=== PATIENT | male | born 1970 | race African-American/Black ===

== ENCOUNTER 2016-10-08 02:17 | Emergency (ER) | payer OTHER ==
[~2016-10-08] VITALS: Ht 180.3 cm; Wt 99.8 kg
--- NOTE | 2016-10-08 02:20 | NUR ---
45 YO MALE BB SELF. PT IS ALERT X 3, C/O SI WITH PLAN; WANTS TO RUN INFRONT OF TRAFFIC. PT AMBULATED TO ER BED 17 WITH STEADY GAIT, SKIN WARM AND DRY, RR EVEN AND UNLABORED. AWAITING ORDERS FROM PROVIDER, WILL CONTINUE TO MONITOR
--- NOTE | 2016-10-08 02:30 | NUR ---
AIDE BROOKS MD AT BED SIDE FOR EVAL
[2016-10-08 03:16] LABS: BASOPHILS % (AUTO) 0.4 % (0.0-2.0); EOSINOPHILS # (AUTO) 0.1 /CMM (0.0-0.7); EOSINOPHILS % (AUTO) 1.9 % (0.0-6.0); HEMATOCRIT 44 % (39-51); HEMOGLOBIN 14.2 g/dL (13.5-17.5); LYMPHOCYTES # (AUTO) 2.4 /CMM (0.8-4.8); LYMPHOCYTES % (AUTO) 37.2 % (20.0-44.0); MEAN CORPUSCULAR HEMOGLOBIN 30 PG (26.0-33.0); MEAN CORPUSCULAR HGB CONC 33 g/dl (31.0-36.0); MEAN CORPUSCULAR VOLUME 92 fL (80-96); MONOCYTES # (AUTO) 0.5 /CMM (0.1-1.30); MONOCYTES % (AUTO) 7.2 % (2.0-12.0); NEUTROPHILS # (AUTO) 3.5 /CMM (1.8-8.9); NEUTROPHILS % (AUTO) 53.3 % (43.0-81.0); PLATELET COUNT (AUTO) 259 /CMM (150-450); RDW COEFFICIENT OF VARIATION 14.4 (11.5-15.0); RED BLOOD CELL COUNT(AUTO) 4.78 MIL/uL (4.5-6.0); WHITE BLOOD COUNT (AUTO) 6.6 K/uL (4.3-11.0)
[2016-10-08] MEDS ORDERED: IBUPROFEN 600 MG TABLET PO ONE ×2 (03:17→03:30)
--- NOTE | 2016-10-08 03:44 | NUR ---
MOVED PT TO ER BED 7, CLOSER TO NURSING STATION DUE TO ELOPMENT RISK
[2016-10-08 03:50] LABS: ALBUMIN 4.1 g/dL (3.4-5.0); BILIRUBIN,DIRECT 0.1 mg/dL (0.0-0.2); BILIRUBIN,TOTAL 0.5 mg/dL (0.2-1.0); CALCIUM, SERUM 8.9 mg/dL (8.5-10.1); POTASSIUM 3.6 mmol/L (3.5-5.1); SALICYLATE 3.5 mg/dL (2.8-20.0); TOTAL PROTEIN, SERUM 7.8 g/dL (6.4-8.2)
--- NOTE | 2016-10-08 05:20 | NUR ---
CHAYITO OLIVA CALLED, NO ANSWER
--- NOTE | 2016-10-08 05:56 | NUR ---
CALLED CHAYITO ROCHE, PER CHAYITO SHE IS NOT GREASE RENDERER, AND HER SHIFT ENDS AT 0400. NEXT CLINICIAN IS ON 0800 ART.
--- NOTE | 2016-10-08 07:15 | NUR ---
REPORT GIVEN TO NEGRITA ROCHE FOR CAMILO
--- NOTE | 2016-10-08 08:06 | NUR ---
SPOKE TO FRANK Rebolledo [facility] [phone], PATIENT'S INFORMATION FAXED TO [phone]. AWAITING FOR CALL WITH BED AVAILABILITY/TRANSFER INSTRUCTIONS.
--- NOTE | 2016-10-08 08:22 | NUR ---
PT ASLEEP, EASILY AROUSABLE. NAD NOTED. CALLED FOR BREAKFAST TRAY.
--- NOTE | 2016-10-08 09:37 | NUR ---
[facility] [employer] MACHINE OPERATOR ETA 45-60 MIN.
--- NOTE | 2016-10-08 10:52 | NUR ---
PT DISCHARGED WITH [facility] TO [facility] FOR VOLUNTARY PSYCH ADMISSION. NAD NOTED. VSS. DISCHARGE SIGNED AND VERBALIZES UNDERSTANDING. DISCHARGE AND LABS SENT WITH PT.
[2016-10-08 10:53] VITALS: BP 152/89
== END 2016-10-08 10:53 | disposition home or self-care (01) ==
LOC: ER 02:17
DX: F10.129 Alcohol abuse with intoxication, unspecified (principal); G89.29 Other chronic pain; R45.851 Suicidal ideations; F20.9 Schizophrenia, unspecified; R10.84 Generalized abdominal pain
CPT/HCPCS: 36415; 80048; 80076; 80329; 85025; 99284; A4606; G0480 ×2; G6039-TC; Z7610

== ENCOUNTER 2017-01-12 23:38 | Inpatient (IN) | payer OTHER ==
[~2017-01-12] VITALS: Ht 177.8 cm; Wt 99.8 kg
--- NOTE | 2017-01-12 23:45 | NUR ---
Pt IN ER BED 1. Pt C/O SEVERE ABD'L PAIN. Pt POSSIBLY HOMELESS BROUGHT IN BY EMT. Pt IS A/OX3, VERBAL, ABLE TO MAKE NEEDS KNOWN. NO S/S OF ACUTE DISTRESS OR SOB NOTED. VS: BP 156/74, HR 103, T 98F, R 18, O2 94% ON RA.
[2017-01-13] MEDS ORDERED: ONDANSETRON HCL/PF 4 MG/2 ML VIAL IVP ONE
[2017-01-13] MEDS ORDERED: IV NS 0.9% 1,000 ML BAG IV ONE
[2017-01-13] MEDS ORDERED: MORPHINE SULFATE INJ 2 MG/ML DISP.SYRIN IV ONE
--- NOTE | 2017-01-13 | NUR ---
Pt LEFT ROOM VIA [place] FOR [place] SCAN
--- NOTE | 2017-01-13 00:06 | NUR ---
CAME BACK FROM CT
[2017-01-13] MEDS ORDERED: ONDANSETRON HCL/PF 4 MG/2 ML VIAL ONE (00:11)
[2017-01-13] MEDS ORDERED: MORPHINE SULFATE INJ 4 MG/ML DISP.SYRIN ONE (00:11)
--- NOTE | 2017-01-13 00:20 | NUR ---
IV ACCESS ON R FOOT #18G
[2017-01-13 00:47] LABS: BASOPHILS % (AUTO) 0.4 % (0.0-2.0); EOSINOPHILS # (AUTO) 0.1 /CMM (0.0-0.7); HEMATOCRIT 40 % (39-51); HEMOGLOBIN 13.1 g/dL (13.5-17.5); LYMPHOCYTES % (AUTO) 41.6 % (20.0-44.0); MEAN CORPUSCULAR HEMOGLOBIN 30 PG (26.0-33.0); MEAN CORPUSCULAR HGB CONC 33 g/dl (31.0-36.0); MEAN CORPUSCULAR VOLUME 91 fL (80-96); MONOCYTES # (AUTO) 0.8 /CMM (0.1-1.30); MONOCYTES % (AUTO) 10.9 % (2.0-12.0); NEUTROPHILS # (AUTO) 3.3 /CMM (1.8-8.9); NEUTROPHILS % (AUTO) 46.1 % (43.0-81.0); PLATELET COUNT (AUTO) 221 /CMM (150-450); RED BLOOD CELL COUNT(AUTO) 4.37 MIL/uL (4.5-6.0); WHITE BLOOD COUNT (AUTO) 7.1 K/uL (4.3-11.0)
[2017-01-13 01:00] LABS: CALCIUM, SERUM 8.1 mg/dL (8.5-10.1); CREATININE 0.9 mg/dL (0.6-1.3); POTASSIUM 2.9 mmol/L (3.5-5.1)
[2017-01-13 01:05] LABS: INR 1.06 (0.87-1.13); PROTHROMBIN TIME 11.4 SECS (9.5-12.7)
[2017-01-13 01:06] LABS: ALBUMIN 3.9 g/dL (3.4-5.0); BILIRUBIN,DIRECT 0.1 mg/dL (0.0-0.2); BILIRUBIN,TOTAL 0.5 mg/dL (0.2-1.0); TOTAL PROTEIN, SERUM 7.2 g/dL (6.4-8.2)
[2017-01-13] MEDS ORDERED: POTASSIUM CHLORIDE 20 MEQ TAB.PRT.SR PO ONE (01:30)
[2017-01-13] MEDS ORDERED: Magnesium 1 GM/2 ML VIAL IV ONE (01:30)
[2017-01-13] MEDS ORDERED: Magnesium 1GM/D5W 100ML PREMIX 200 ML IV ONE (01:33)
[2017-01-13] MEDS ORDERED: HYDROMORPHONE 1 MG/1 ML DISP.SYRIN IV ONE (02:00)
[2017-01-13] MEDS ORDERED: POTASSIUM CL. PREMIX PERIPHER. 50 ML IV SCH (02:00)
[2017-01-13] MEDS ORDERED: POTASSIUM CL. PREMIX PERIPHER. 50 ML ONE (02:36)
[2017-01-13] MEDS ORDERED: HYDROMORPHONE 1 MG/1 ML DISP.SYRIN ONE (03:45)
--- NOTE | 2017-01-13 04:05 | NUR ---
RECEIVED REPORT FROM ER REGARDING NEW ADMISSION. AWAITING ARRIVAL IN UNIT
[2017-01-13 04:10] VITALS: BP 147/89
--- NOTE | 2017-01-13 04:10 | NUR ---
REPORT GIVEN TO RNCRIS
--- NOTE | 2017-01-13 04:10 | NUR ---
PATIENT ARRIVED IN UNIT VIA GURNEY, ALERT AND ORIENTED X4, CALM, NO SOB, NO RESPIRATORY DISTRESS, COMPLAINING OF RIGHT LOWER QUADRANT PAIN OF 8/10, DX PANCREATITIS. PATIENT IS EXPRESSING SUICIDAL IDEATION, PLAN IS TO THROW HIMSELF ON ONCOMING TRAFFIC IN [facility]. PATIENT IS HOMELESS, AND HOPELESS OF SITUATION. ADMITTED TO SMOKING 15 CIGARETTES DAILY AND DRINK ALCOHOL PREFERABLY GIN TO WHATEVER HE CAN AFFORD, APPROX 5 BOTTLES PER DAY OR PER WEEK. RIGHT FOOT #18 GAUGE, FLUSHED. HAS ER ORDER OF KCL 40 MEQ IV, GIVEN ONLY 1 BAG, CONTINUED 3 MORE BAGS OR KCL 30 MEQ. HAS SITTER AT THE BEDSIDE, ON SUICIDAL PRECAUTION. SKIN ASSESSMENT PERFORMED, DRY FEET, GENERAL SKIN CONDITION IS INTACT. ORIENTED TO ROOM AND USE OF CALL LIGHT. WILL CONTINUE TO MONITOR.
--- NOTE | 2017-01-13 04:14 | NUR ---
Pt LEFT ROOM FOR ADMISSION TO 308
[2017-01-13 04:30] VITALS: BP 147/89
[2017-01-13] MEDS ORDERED: MAG HYDROX/AL HYDROX/SIMETH 30 ML UDC PO PRN (04:30)
[2017-01-13] MEDS ORDERED: Z GUARD REMEDY 2 OZ OINT TP PRN (04:30)
[2017-01-13] MEDS ORDERED: ACETAMINOPHEN 325 MG TABLET PO PRN (04:30)
[2017-01-13] MEDS ORDERED: MAGNESIUM HYDROXIDE 30 ML UDC PO PRN (04:30)
[2017-01-13] MEDS ORDERED: ONDANSETRON HCL/PF 4 MG/2 ML VIAL IVP PRN (04:30)
[2017-01-13] MEDS ORDERED: HYDROCODONE/APAP 5/325MG 1 EACH TABLET PO PRN (04:30)
--- NOTE | 2017-01-13 04:35 | NUR ---
MARITZA COLLAZO ORDERED PSYCH CONSULT SECONDARY TO SUICIDAL IDEATION, NOTIFIED CHARGE NURSE.
[2017-01-13] MEDS: IV NS 0.9% 1,000 ML IV PRN ×3 (04:51→21:09)
[2017-01-13] MEDS: POTASSIUM CL. PREMIX PERIPHER. 50 ML IV SCH ×9 (05:03→22:09)
[2017-01-13] MEDS ORDERED: MORPHINE SULFATE INJ 2 MG/ML DISP.SYRIN ONE (05:14)
[2017-01-13] MEDS: MORPHINE SULFATE INJ 2 MG/ML DISP.SYRIN IV PRN ×2 (05:56→20:11)
--- NOTE | 2017-01-13 06:30 | NUR ---
PATIENT IN BED, ALERT AND ORIENTED X4, CALM, NO SOB, NO COMPLAIN OF PAIN AT THIS TIME, PROVIDED PAIN MEDICATION. COUNSELED ABOUT SMOKING CESSATION, SUGGESTED NICOTINE PATCH, PATIENT REFUSED, PER PATIENT "DOES NOT WORK." ENDORSED TO AM SHIFT FOR CONTINUITY OF CARE
[2017-01-13] MEDS ORDERED: PANTOPRAZOLE 40 MG TABLET.DR PO SCH (07:30)
[2017-01-13] MEDS ORDERED: PANTOPRAZOLE 40 MG VIAL IV SCH (07:30)
--- NOTE | 2017-01-13 07:35 | NUR ---
RN OPENING NOTES PATIENT IN BED ASLEEP, AROUSES EASILY. A/O X4. NO ACUTE DISTRESS, NO SOB NOTED. DENIES PAIN AT THIS TIME. IV SITE INTACT AND PATENT. SITTER ON BEDSIDE FOR SAFETY MEASURES. BED IN LOW POSITION, LOCKED, SIDERAILS UP X2. CALL LIGHTS WITHIN REACH. WILL CONTINUE TO MONITOR ACCORDINGLY.
[2017-01-13 08:00] VITALS: BP 150/94
[2017-01-13] MEDS: FAMOTIDINE/PF INJ 20 MG/2 ML VIAL IV SCH ×2 (09:40→20:32)
--- NOTE | 2017-01-13 12:30 | NUR ---
RN NOTES MIDLINE WAS INSERTED BY MIDLINE NURSE. PATENT AND INTACT.
[2017-01-13] MEDS ORDERED: QUETIAPINE FUMARATE 100 MG TABLET PO SCH (13:00)
[2017-01-13 16:00] VITALS: BP 154/87
[2017-01-13] MEDS: OXCARBAZEPINE 150 MG TABLET PO SCH ×2 (16:33→16:43)
--- NOTE | 2017-01-13 17:23 | NUR ---
RN NOTES DR CAPONE ORDERED EKG FOR BASELINE OF ANTIPSYCH MEDS, EKG RESULTED ABNORMAL. DR NARANJO AND DR CAPONE NOTIFIED, NO NEW ORDERS GIVEN. PATIENT IS ASYMPTOMATIC. WILL CONTINUE TO MONITOR PATIENT ACCORDINGLY.
--- NOTE | 2017-01-13 18:50 | NUR ---
RN NOTES 3 BAGS OF POTASSIUM 10 MEQ PULLED OUT AND ENDORSED TO ORDNANCE EQUIPMENT WORKER RN.
--- NOTE | 2017-01-13 19:00 | NUR ---
RN CLOSING NOTES PATIENT IN BED RESTING. NO ACUTE DISTRESS, NO SOB NOTED. DENIES ANY PAIN OR DISCOMFORT. ALL NEEDS ATTENDED AND PROVIDED. KEPT PATIENT SAFE AND COMFORTABLE. SITTER ON BEDSIDE FOR SAFETY. BED IN LOW POSITION, SIDERAILS UP X2. CALL LIGHT WITHIN REACH. ENDORSED TO SKID WORKER RN FOR CONTINUITY OF CARE.
--- NOTE | 2017-01-13 19:38 | NUR ---
RN NOTES MIDLINE BEING UNCLOGGED BY MELCHOR SO.
--- NOTE | 2017-01-13 19:38 | NUR ---
RN NOTES RECEIVED PATIENT IN BED, ALERT AND ORIENTED X4, ANXIOUS ABOUT EATING. NO SOB, NO RESPIRATORY DISTRESS, REPEATEDLY ASKING WHEN TO BE ABLE TO EAT. EDUCATED ON PANCREATITIS AND BEING NPO. WILL NEED TO REINFORCE TEACHING NEEDED. NO EPIGASTRIC PAIN AT THIS TIME, ON SUICIDE PRECAUTION, SITTER AT THE BEDSIDE. CALL LIGHT WITHIN REACH.
[2017-01-13 20:00] VITALS: BP 156/95
[2017-01-13 20:02] VITALS: BP 156/95
[2017-01-13] MEDS: QUETIAPINE FUMARATE 100 MG TABLET PO SCH (20:04)
--- NOTE | 2017-01-13 20:04 | NUR ---
RN NOTES SEROQUEL HELD, PATIENT IS STILL NPO. PER ENDORSEMENT RESUME PO MEDICATIONS ONCE ABLE TO TOLERATE SOLID FOOD.
--- NOTE | 2017-01-13 21:22 | NUR ---
RN NOTES RIGHT UPPER ARM MIDLINE IS GETTING CLOGGED AGAIN, UNABLE TO FLUSH.
--- NOTE | 2017-01-13 22:00 | NUR ---
REFUSED DVT PUMP, EXPLAINED TO PATIENT RISKS AND BENEFITS, STILL REFUSED
[2017-01-14 06:41] LABS: BASOPHILS % (AUTO) 0.3 % (0.0-2.0); EOSINOPHILS # (AUTO) 0.2 /CMM (0.0-0.7); EOSINOPHILS % (AUTO) 2.6 % (0.0-6.0); HEMATOCRIT 41 % (39-51); HEMOGLOBIN 13.6 g/dL (13.5-17.5); LYMPHOCYTES # (AUTO) 1.4 /CMM (0.8-4.8); LYMPHOCYTES % (AUTO) 18.1 % (20.0-44.0); MEAN CORPUSCULAR HEMOGLOBIN 31 PG (26.0-33.0); MEAN CORPUSCULAR HGB CONC 34 g/dl (31.0-36.0); MEAN CORPUSCULAR VOLUME 92 fL (80-96); MONOCYTES # (AUTO) 0.6 /CMM (0.1-1.30); MONOCYTES % (AUTO) 7.3 % (2.0-12.0); NEUTROPHILS # (AUTO) 5.7 /CMM (1.8-8.9); NEUTROPHILS % (AUTO) 71.7 % (43.0-81.0); PLATELET COUNT (AUTO) 178 /CMM (150-450); RDW COEFFICIENT OF VARIATION 14.2 (11.5-15.0); RED BLOOD CELL COUNT(AUTO) 4.43 MIL/uL (4.5-6.0); WHITE BLOOD COUNT (AUTO) 7.9 K/uL (4.3-11.0)
--- NOTE | 2017-01-14 06:41 | NUR ---
RN CLOSING NOTES PATIENT IN BED, ALERT AND AWAKE, ANXIOUS, ASKING WHEN TO EAT, NO SUICIDAL IDEATION AT THIS TIME, NO SOB, NO RESPIRATORY DISTRESS, REQUESTED MORPHINE X1 DURING SHIFT. NO VOMITING, LAKISHA MIDLINE IS STILL CLOGGED, UNABLE TO FLUSH. NO BEHAVIOR DISTURBANCE NOTED, NEEDS ATTENDED, CALL LIGHT WITHIN REACH, SITTER AT THE BEDSIDE.
[2017-01-14 07:19] LABS: ALBUMIN 3.5 g/dL (3.4-5.0); BILIRUBIN,TOTAL 0.7 mg/dL (0.2-1.0); CALCIUM, SERUM 8.8 mg/dL (8.5-10.1); CREATININE 0.8 mg/dL (0.6-1.3); MAGNESIUM 1.7 mg/dL (1.8-2.4); PHOSPHORUS 3.4 mg/dL (2.5-4.9); POTASSIUM 3.5 mmol/L (3.5-5.1)
[2017-01-14 07:22] LABS: THYROID STIMULATING HORMONE 0.089 uIU/mL (0.358-3.74)
[2017-01-14 08:00] VITALS: BP 150/90
--- NOTE | 2017-01-14 08:00 | NUR ---
m/s multimedia services coordinator: notes dr. grimm here and made aware re: midline clogged and pt is a hard stick, lipase is normalized, and pt has no abdominal pain or discomfort with verbal order to start pt on clear liquid diet and changed iv pepcid to po. pt still needs iv fluids. bhnau (supervisor packing) notified re: de clogging the midline.
--- NOTE | 2017-01-14 08:12 | NUR ---
m/s leather stitcher: md visit seen and examined by dr. grimm and updated plan of care. if pt tolerates clear liquid, pt may have solid food for lunch per md, pt verbalized understanding. clear liquid ordered. sitter at bedside. will continue to monitor.
[2017-01-14] MEDS: QUETIAPINE FUMARATE 100 MG TABLET PO SCH (08:37)
[2017-01-14] MEDS: OXCARBAZEPINE 150 MG TABLET PO SCH (08:37)
[2017-01-14] MEDS ORDERED: FAMOTIDINE (20 MG) 20 MG TABLET PO SCH (09:00)
--- NOTE | 2017-01-14 09:18 | NUR ---
m/s lab courier: notes pt tolerated clear liquid diet, no c/o n/v or abdominal discomfort at this time. will continue to monitor.
--- NOTE | 2017-01-14 10:25 | NUR ---
m/s manager commodities: notes pt tolerated clear liquid diet. dr. grimm notified and made aware with order to advance diet to regular. order read back and carried out and acknowledged. also made aware re: mag level 1.7 and md will take care of it as stated.
--- NOTE | 2017-01-14 11:07 | NUR ---
Social service consult requested by MARITZA Pennington for suicidal ideations and homelessness. Pt. is a 46 year old male who was admitted to [facility] for pancreatitis. Pt. is alert and oriented x 4. Pt. was cooperative with SW during the assessment. Pt. informed SW he is homeless and has been homeless on and off for approximately a year. Prior to being homeless he states, he has been living with "so called" friends. Pt. receives $983/ month in SSI disability. Pt. has no family or social supports. Pt. states he has a psychiatric diagnosis of Bipolar, Schizophrenia, Depression with a chemical imbalance. Pt. takes Seroquel daily. Pt. states he is suicidal but does not have a plan. Pt. wants voluntary hospitalization at [facility] once medically cleared. Pt. denies using drugs but drinks Gin and Vodka daily. Pt. smokes a pack of cigarettes per day. SW to refer pt. to [facility] for psychiatric care.
--- NOTE | 2017-01-14 11:12 | NUR ---
BRETT contacted [facility] and spoke to Blanca in intake regarding pt. wanting hospitalization. Blanca informed BRETT she is familiar with pt. and would like to speak to pt. prior to accepting him. BRETT called pt's MELCHOR Chen [phone] and informed him to have pt. call Blanca at [facility]. BRETT faxed clinicals to intake at . Addendum: 01/14/17 at 1115 by JOSH WEST BRETT received a call back from MELCHOR Chen informing BRETT that pt. called Blanca at [facility] and they will be holding a bed fro him. BRETT informed MELCHOR Chen that discharge summary needs to state " pt. is medically cleared" or else they will not accept pt.
[2017-01-14] MEDS ORDERED: MAGNESIUM OXIDE 400 MG TABLET PO ONE (11:30)
[2017-01-14] MEDS ORDERED: Magnesium 1GM/D5W 100ML PREMIX 100 ML IV SCH (11:30)
--- NOTE | 2017-01-14 11:40 | NUR ---
m/s apprentice architect: notes received order to d'c pt home with Discharge instructions <If patient tolerates solid food well and cleared by psychiatry may be, discharging p.m., Followup with primary care physician, Resume Home medications. pt has a bed at [facility]. spoke to dr. gannon (psych), pt is cleared for discharge. per gera (social work msw), pt needs a drug screen before discharge. dr. grimm notified and made aware and okay for pt to go to [facility] [place], pt is medically clear per md. informed md needs to state pt is medically clear in discharge summary.
--- NOTE | 2017-01-14 12:15 | NUR ---
m/s elevator adjuster: notes ua collected for drug screen via clean catch. called lab to draft roller picker specimen in ref, spoke to kandice.
--- NOTE | 2017-01-14 13:10 | NUR ---
m/s manager operations and procurement: notes urine still in the ref. f/u made to lab once more to pharmacy picking tech the specimen.
--- NOTE | 2017-01-14 14:15 | NUR ---
m/s recruitment manager: notes drug screen resulted. gera (social worker masters) made aware.
--- NOTE | 2017-01-14 14:29 | NUR ---
BRETT faxed drug screen results to Blanca in intake at [facility] . BRETT called Blanca and informed her that drug screen results and discharge summary were faxed. Blanca informed BRETT, she did receive them and to have a nurse to nurse report at x [phone]. BRETT contacted MELCHOR Chen and gave him the contact number to call for nurse to nurse report.
--- NOTE | 2017-01-14 14:30 | NUR ---
m/s drill rig operator: notes report given to demarcus (nurse) at [facility] [place] for continuity of care. demarcus wants pt to go by ambulance and not taxi. gera (foster care social worker) made aware and wants me to call case management. called vincent (case management) and informed me to ask the pt.
--- NOTE | 2017-01-14 14:45 | NUR ---
m/s watch crystal cutter: notes mid line removed with tip intact. pt request for ambulance and case management made aware and arranged for picking machine operator helper at 1600, pt made aware. pt request for sandwiches and cookies. kitchen notified.
--- NOTE | 2017-01-14 15:00 | NUR ---
m/s ux consultant: notes discharged instructions given to pt and verbalized understanding. pt has a cousin, but pt refused next of kin to be notified per request. awaiting for ambulance to pick him up. will continue to monitor.
[2017-01-14 16:00] VITALS: BP 149/80
--- NOTE | 2017-01-14 16:10 | NUR ---
m/s circus trainer: notes med response here and report given to one of the crew.
--- NOTE | 2017-01-14 16:35 | NUR ---
m/s payroll human resources assistant: discharged discharged to [facility] in stable condition with all belongings/valuables accompanied by 2 ambulance crew.
== END 2017-01-14 16:34 | DRG 282 ==
LOC: ER 23:39 → MED 01-13 03:46
PROVIDERS: ADMIT Nurse Practitioner Acute Care; ATTEND Nurse Practitioner Acute Care
PROC: 05H533Z Insertion of Infusion Device into Right Subclavian Vein, Percutaneous Approach (ICD-10-PCS; principal; 2017-01-13)
DX: K85.90 Acute pancreatitis without necrosis or infection, unspecified (principal); R45.851 Suicidal ideations; K76.0 Fatty (change of) liver, not elsewhere classified; E87.6 Hypokalemia; Z59.0 Homelessness; Z79.899 Other long term (current) drug therapy; R74.0 Nonspecific elevation of levels of transaminase and lactic acid dehydrogenase [LDH]; Z72.0 Tobacco use; F25.0 Schizoaffective disorder, bipolar type; F10.980 Alcohol use, unspecified with alcohol-induced anxiety disorder; Y90.9 Presence of alcohol in blood, level not specified
CPT/HCPCS: 36415; 36569; 72128-TC; 80048-TC; 80053-TC; 80061-TC; 80076-TC; 80305; 82962-TC; 83690-TC; 83735-TC; 84100-TC; 84443-TC; 84484-TC; 85025-TC; 85730-TC; 87081-TC; A4606; G0480; J1170; J2270; J2405; J3475; J3480; J3490; J7030; Z7610

== ENCOUNTER 2017-02-02 04:35 | Emergency (ER) | payer OTHER ==
[~2017-02-02] VITALS: Ht 185.4 cm; Wt 114.8 kg
[2017-02-02] MEDS ORDERED: MORPHINE SULFATE INJ 4 MG/ML DISP.SYRIN ONE (04:43)
[2017-02-02] MEDS ORDERED: ONDANSETRON HCL/PF 4 MG/2 ML VIAL ONE (04:43)
--- NOTE | 2017-02-02 04:46 | NUR ---
PT BIBRA FROM HOME FOR DIFUSE ABD PAIN, SHARP X 1 WK. PT ADMITS TO ETOH. PT AOX4 RR EVEN AND UNLABORED. NO SOB NOTED. NAD NOTED. NO NVD AT THIS TIME. PT GOWNED AND PLACED ON MONITOR WAITING FOR MD DUMAS.
[2017-02-02] MEDS ORDERED: ONDANSETRON HCL/PF 4 MG/2 ML VIAL IVP ONE (05:00)
[2017-02-02] MEDS ORDERED: MORPHINE SULFATE INJ 2 MG/ML DISP.SYRIN IV ONE (05:00)
[2017-02-02] MEDS ORDERED: IV NS 0.9% 1,000 ML BAG IV ONE (05:00)
--- NOTE | 2017-02-02 05:00 | NUR ---
PER DR. SAKINA STARR TO START IV ON FOOT.
--- NOTE | 2017-02-02 05:11 | NUR ---
LAB AT BEDSIDE FOR BLOOD DRAW.
--- NOTE | 2017-02-02 05:15 | NUR ---
PT STATES " I WANT TO KILL MYSELF OR KILL OTHERS, BUT I DONT FEEL LIKE RIGHT NOW" PT DENIES ANY PLANS AT THIS TIME. DR. MILLER MADE AWARE
--- NOTE | 2017-02-02 05:40 | NUR ---
PT TO CT.
[2017-02-02 05:49] LABS: BASOPHILS # (AUTO) 0.1 /CMM (0.0-0.2); BASOPHILS % (AUTO) 0.8 % (0.0-2.0); EOSINOPHILS % (AUTO) 0.6 % (0.0-6.0); HEMATOCRIT 43 % (39-51); HEMOGLOBIN 14.2 g/dL (13.5-17.5); LYMPHOCYTES # (AUTO) 2.2 /CMM (0.8-4.8); MEAN CORPUSCULAR HEMOGLOBIN 30 PG (26.0-33.0); MEAN CORPUSCULAR HGB CONC 33 g/dl (31.0-36.0); MEAN CORPUSCULAR VOLUME 91 fL (80-96); MONOCYTES # (AUTO) 0.5 /CMM (0.1-1.30); MONOCYTES % (AUTO) 7.4 % (2.0-12.0); NEUTROPHILS # (AUTO) 3.7 /CMM (1.8-8.9); NEUTROPHILS % (AUTO) 57.2 % (43.0-81.0); PLATELET COUNT (AUTO) 246 /CMM (150-450); RDW COEFFICIENT OF VARIATION 14.6 (11.5-15.0); RED BLOOD CELL COUNT(AUTO) 4.72 MIL/uL (4.5-6.0); WHITE BLOOD COUNT (AUTO) 6.6 K/uL (4.3-11.0)
[2017-02-02 05:52] LABS: CALCIUM, SERUM 8.6 mg/dL (8.5-10.1); CARBON DIOXIDE 25 mmol/L (21-32); CHLORIDE 108 mmol/L (98-107); CREATININE 0.8 mg/dL (0.6-1.3); GLUCOSE 106 mg/dL (74-106); POTASSIUM 3.7 mmol/L (3.5-5.1); SODIUM SERUM 145 mmol/L (136-145); UREA NITROGEN, BLOOD 10 mg/dL (7-18)
[2017-02-02 05:58] LABS: ALANINE AMINOTRANSFERASE 66 U/L (12-78); ALBUMIN 4.1 g/dL (3.4-5.0); ALKALINE PHOSPHATASE 105 U/L (46-116); ASPARTATE AMINOTRANSFERASE 31 U/L (15-37); BILIRUBIN,DIRECT 0.1 mg/dL (0.0-0.2); BILIRUBIN,TOTAL 0.6 mg/dL (0.2-1.0); LIPASE 138 U/L (73-393); TOTAL PROTEIN, SERUM 7.9 g/dL (6.4-8.2)
[2017-02-02 06:00] LABS: SALICYLATE 3.3 mg/dL (2.8-20.0)
--- NOTE | 2017-02-02 06:18 | NUR ---
URINE COLLECTED. CALLED LAB FOR LAG SCREWER.
[2017-02-02 06:28] LABS: APPEARANCE,URINE CLEAR (CLEAR); BILIRUBIN,URINE NEGATIVE (NEGATIVE); BLOOD, URINE NEGATIVE Ery/uL (NEGATIVE); COLOR,URINE YELLOW (YELLOW); KETONES,URINE NEGATIVE (NEGATIVE); LEUKOCYTE ESTERASE ,URINE NEGATIVE (NEGATIVE); NITRITE, URINE NEGATIVE (NEGATIVE); PH,URINE 6.5 (5.0-8.0); PROTEIN,URINE NEGATIVE (NEGATIVE); UGLUCOSE NEGATIVE (NEGATIVE); UROBILINOGEN,URINE 0.2 EU/dL (0.2)
[2017-02-02 06:34] LABS: INR 1.04 (0.87-1.13); PROTHROMBIN TIME 11.1 SECS (9.5-12.7)
--- NOTE | 2017-02-02 06:54 | NUR ---
DR. CROW SPEAKING TO PT REGARDING POC
--- NOTE | 2017-02-02 07:20 | NUR ---
PER DR. CROW, PT CLEARED FOR PSYCH CONSULT
--- NOTE | 2017-02-02 07:27 | NUR ---
REPORT GIVEN TO MELCHOR CORADO FOR CAMILO.
--- NOTE | 2017-02-02 08:00 | NUR ---
DR. CROW INFORMED OF LACTIC ACID 2.1, NO NEW ORDERS AT THIS TIME.
--- NOTE | 2017-02-02 08:26 | NUR ---
PAGED RON SPARKS RN FOR PSYCH EVAL ETA - 1 HR
--- NOTE | 2017-02-02 09:25 | NUR ---
Patient cleared per psych eval.
[2017-02-02 09:29] VITALS: BP 155/72
--- NOTE | 2017-02-02 09:40 | NUR ---
Patient discharged to home in stable condition. IV removed. ID band removed. Written and verbal after care instructions given. Patient verbalizes understanding of instruction.
== END 2017-02-02 09:40 | disposition home or self-care (01) ==
LOC: ER 04:36
DX: R10.84 Generalized abdominal pain (principal); R45.851 Suicidal ideations; Z59.0 Homelessness
CPT/HCPCS: 36415; 74176; 80048; 80076; 80305; 80329; 81001; 83605 ×2; 83690; 85025; 85730; 87040 ×2; 96361; 96374; 96375; 99285; A4606; G0480 ×2; J2270; J2405; J7030; Z7610; 71250-TC; 81000-TC

== ENCOUNTER 2017-02-02 23:17 | Emergency (ER) | payer OTHER ==
[~2017-02-02] VITALS: Ht 185.4 cm; Wt 114.8 kg
--- NOTE | 2017-02-03 | NUR ---
46 YO MALE BB [id number] FROM [facility]. NON-SPECIFIC, DIFUSE ABD PAIN. PT AMBULATED TO ER BED, SKIN WARM AND DRY, RR EVEN AND UNLABORED. PT ASSISTED TO ER BED, SKIN WARM AND DRY, RR EVEN AND UNLABORED. AWAITING ORDERS FROM PROVIDER
[2017-02-03 00:25] LABS: BASOPHILS # (AUTO) 0.1 /CMM (0.0-0.2); BASOPHILS % (AUTO) 1.3 % (0.0-2.0); EOSINOPHILS # (AUTO) 0.1 /CMM (0.0-0.7); EOSINOPHILS % (AUTO) 1.7 % (0.0-6.0); HEMATOCRIT 44 % (39-51); HEMOGLOBIN 14.4 g/dL (13.5-17.5); LYMPHOCYTES # (AUTO) 3.3 /CMM (0.8-4.8); LYMPHOCYTES % (AUTO) 45.6 % (20.0-44.0); MEAN CORPUSCULAR HEMOGLOBIN 30 PG (26.0-33.0); MEAN CORPUSCULAR HGB CONC 33 g/dl (31.0-36.0); MEAN CORPUSCULAR VOLUME 91 fL (80-96); MONOCYTES # (AUTO) 0.2 /CMM (0.1-1.30); NEUTROPHILS # (AUTO) 3.5 /CMM (1.8-8.9); NEUTROPHILS % (AUTO) 48.4 % (43.0-81.0); PLATELET COUNT (AUTO) 262 /CMM (150-450); RDW COEFFICIENT OF VARIATION 15.2 (11.5-15.0); RED BLOOD CELL COUNT(AUTO) 4.83 MIL/uL (4.5-6.0); WHITE BLOOD COUNT (AUTO) 7.1 K/uL (4.3-11.0)
--- NOTE | 2017-02-03 00:25 | NUR ---
AT BED SIDE FOR EVAL
[2017-02-03 00:47] LABS: CALCIUM, SERUM 8.6 mg/dL (8.5-10.1); POTASSIUM 3.5 mmol/L (3.5-5.1)
[2017-02-03 00:51] LABS: ALBUMIN 4.2 g/dL (3.4-5.0); BILIRUBIN,DIRECT 0.1 mg/dL (0.0-0.2); BILIRUBIN,TOTAL 0.4 mg/dL (0.2-1.0); TOTAL PROTEIN, SERUM 8.1 g/dL (6.4-8.2)
[2017-02-03 01:02] LABS: ALCOHOL, BLOOD 248 mg/dL (0-0)
[2017-02-03 01:04] LABS: ACETAMINOPHEN 0 ug/ml (10-30)
--- NOTE | 2017-02-03 02:05 | NUR ---
PATIENT RESTING IN ER BED, NAD NOTED, SKIN WARM AND DRY, WILL CONTINUE TO MONITOR
--- NOTE | 2017-02-03 04:02 | NUR ---
PATIENT RESTING IN ER BED, NAD NOTED, SKIN WARM AND DRY, WILL CONTINUE TO MONITOR
[2017-02-03 06:21] VITALS: BP 147/75
--- NOTE | 2017-02-03 06:21 | NUR ---
Patient discharged to home in stable condition. Written and verbal after care instructions given. Patient verbalizes understanding of instruction. PT ambulatory with a steady gait
== END 2017-02-03 06:21 | disposition home or self-care (01) ==
LOC: ER 23:19
DX: F10.129 Alcohol abuse with intoxication, unspecified (principal); R10.13 Epigastric pain
CPT/HCPCS: 36415; 80048; 80076; 83690; 85025; 99284; A4606; G0480 ×2; Z7610

== ENCOUNTER 2017-02-04 21:01 | Emergency (ER) | payer OTHER ==
[~2017-02-04] VITALS: Ht 177.8 cm; Wt 90.7 kg
--- NOTE | 2017-02-04 21:14 | NUR ---
PT FRANKLYN ER BED 15. HERE FOR MEDICAL AND PSYCH EVAL. PT IS C/O DIFFUSE ABDOMINAL PAIN. ADMITS TO BEEN DRINKS ALCOHOL. ALSO C/O SI. NO SPECIFIC PLAN. REQUESTING MORPHIN STATING "IT MAKES ME FEEL GOOD." PLACED ON MONITOR. AWAITING MD DUMAS.
--- NOTE | 2017-02-04 21:20 | NUR ---
KAROLINA ARROYO AT BEDSIDE FOR EVAL.
[2017-02-04] MEDS ORDERED: KETOROLAC TROMETHAMINE INJ 30 MG/ML VIAL ONE (21:30)
--- NOTE | 2017-02-04 21:30 | NUR ---
APPARATUS LINEMAN AT BEDSIDE FOR BLOOD DRAW.
--- NOTE | 2017-02-04 21:30 | NUR ---
Milton castaneda in [facility] - 02/04/17 at 2311 by MARVA CERTIFIED HYPERBARIC TECHNICIAN AT BEDSIDE FOR SYBILAL.
[2017-02-04 21:37] LABS: BASOPHILS # (AUTO) 0.1 /CMM (0.0-0.2); BASOPHILS % (AUTO) 0.9 % (0.0-2.0); EOSINOPHILS # (AUTO) 0.1 /CMM (0.0-0.7); EOSINOPHILS % (AUTO) 1.4 % (0.0-6.0); HEMATOCRIT 43 % (39-51); HEMOGLOBIN 13.9 g/dL (13.5-17.5); LYMPHOCYTES # (AUTO) 2.9 /CMM (0.8-4.8); LYMPHOCYTES % (AUTO) 41.3 % (20.0-44.0); MEAN CORPUSCULAR HEMOGLOBIN 30 PG (26.0-33.0); MEAN CORPUSCULAR HGB CONC 32 g/dl (31.0-36.0); MEAN CORPUSCULAR VOLUME 93 fL (80-96); MONOCYTES # (AUTO) 0.4 /CMM (0.1-1.30); MONOCYTES % (AUTO) 5.4 % (2.0-12.0); NEUTROPHILS # (AUTO) 3.4 /CMM (1.8-8.9); PLATELET COUNT (AUTO) 290 /CMM (150-450); RDW COEFFICIENT OF VARIATION 14.1 (11.5-15.0); RED BLOOD CELL COUNT(AUTO) 4.65 MIL/uL (4.5-6.0); WHITE BLOOD COUNT (AUTO) 6.9 K/uL (4.3-11.0)
[2017-02-04] MEDS: KETOROLAC TROMETHAMINE INJ 30 MG/ML VIAL IV ONE (22:19)
[2017-02-04 22:44] LABS: CALCIUM, SERUM 8.6 mg/dL (8.5-10.1); POTASSIUM 3.4 mmol/L (3.5-5.1)
[2017-02-04 22:45] LABS: APPEARANCE,URINE CLEAR (CLEAR); COLOR,URINE YELLOW (YELLOW); PROTEIN,URINE TRACE mg/dl (NEGATIVE)
[2017-02-04 22:46] LABS: UGLUCOSE NEGATIVE (NEGATIVE)
[2017-02-04 22:47] LABS: BILIRUBIN,URINE NEGATIVE (NEGATIVE); BLOOD, URINE TRACE Ery/uL (NEGATIVE); KETONES,URINE TRACE (NEGATIVE); LEUKOCYTE ESTERASE ,URINE NEGATIVE (NEGATIVE); NITRITE, URINE NEGATIVE (NEGATIVE); UROBILINOGEN,URINE 0.2 EU/dL (0.2)
[2017-02-04 22:49] LABS: BACTERIA,URINE None seen /HPF (None Seen); MUCUS,URINE Few /LPF (None Seen); RBC,URINE 0-2 /HPF (0-2); SQUAMOUS EPITHELIAL CELL,UR Rare /HPF (None Seen); WBC,URINE 0-2 /HPF (0-3)
[2017-02-04 22:51] LABS: BILIRUBIN,DIRECT 0.1 mg/dL (0.0-0.2); BILIRUBIN,TOTAL 0.4 mg/dL (0.2-1.0)
[2017-02-04 22:52] LABS: ALBUMIN 4.4 g/dL (3.4-5.0); SALICYLATE 3.6 mg/dL (2.8-20.0); TOTAL PROTEIN, SERUM 8.3 g/dL (6.4-8.2)
--- NOTE | 2017-02-05 00:05 | NUR ---
PT IS SLEEPING. EASILY AROUSABLE. ON MONITOR W/ STABLE VITALS. WILL CONTINUE TO MONITOR.
--- NOTE | 2017-02-05 02:13 | NUR ---
PT ON MONITOR SLEEPING IN NO APPARENT DISTRESS, MD MADE AWARE WILL CONTINUE TO MONITOR.
--- NOTE | 2017-02-05 03:57 | NUR ---
PT IS SLEEPING IN NO APPARENT DISTRESS, MD MADE AWARE WILL CONTINUE TO MONITOR.
--- NOTE | 2017-02-05 05:03 | NUR ---
PT A/OX4 BREATHING EFFORTLESSLY ON ROOM AIR, PT STATES HE IS FEELING BETTER AFTER SLEEPING, PT DENIES SI OR HI AT THIS TIME, PT WALKED OUT OF THE ER WITH A STEADY GAIT
[2017-02-05 05:05] VITALS: BP 126/76
--- NOTE | 2017-02-05 05:05 | NUR ---
Patient given written and verbal discharge instructions. Patient verbalizes understanding of instructions. Patient is ambulatory with steady gait. Refuses offer of jail placement. Patient given list of available shelters in surrounding area.
== END 2017-02-05 05:06 | disposition home or self-care (01) ==
LOC: ER 21:02
DX: F10.129 Alcohol abuse with intoxication, unspecified (principal)
CPT/HCPCS: 36415; 80048-TC; 80076-TC; 80305; 81000-TC; 85025-TC; A4606; G0480; J1885; Z7610

== ENCOUNTER 2017-02-05 23:24 | Emergency (ER) | payer OTHER ==
[~2017-02-05] VITALS: Ht 175.3 cm; Wt 90.7 kg
[2017-02-05 23:25] VITALS: BP 165/88
--- NOTE | 2017-02-05 23:25 | NUR ---
BIB BLS HERE FOR "CHRONIC ABD PAIN". STATES "I WANT MORPHINE, SOMETHNG TO EAT AND SOMEWHERE TO SLEEP". PT TRIAGED AND PLACED IN WR. NO BEDS AVAILABLE AT THIS TIME. PT INFORMED. NO S/S OF DISTRESS NOTED. RESP EVEN AND UNLABORED. FSBS 115G/DL.
--- NOTE | 2017-02-06 01:25 | NUR ---
ASKED FOR BLANKET AND GIVEN. LYING IN CHAIR IN WR. APPEARS TO BE SLEEPING. STATES "I JUST WANNA SLEEP".
--- NOTE | 2017-02-06 02:05 | NUR ---
REMAINS RESTIGN WITH EYES CLOSED. NAD NOTED.
--- NOTE | 2017-02-06 03:17 | NUR ---
STILL RESTING WITH EYES CLOSED IN WR WITH BLANKET COVER. NO S/S OF DISTRESS NOTED. STILL STATES "AM TIRED AND JUST WANNA SLEEP". RENOTIFIED.
--- NOTE | 2017-02-06 04:00 | NUR ---
INFORMED BY SECURITY "PT LEFT"
== END 2017-02-06 04:46 | disposition left against medical advice (07) ==
LOC: ER 23:25
DX: Z53.21 Procedure and treatment not carried out due to patient leaving prior to being seen by health care provider (principal)
CPT/HCPCS: A4606; Z7610

== ENCOUNTER 2017-02-17 02:47 | Emergency (ER) | payer OTHER ==
[~2017-02-17] VITALS: Ht 177.8 cm; Wt 90.7 kg
[2017-02-17 06:24] VITALS: BP 125/72
== END 2017-02-17 06:59 | disposition home or self-care (01) ==
LOC: ER 02:52
DX: F10.129 Alcohol abuse with intoxication, unspecified (principal); K85.90 Acute pancreatitis without necrosis or infection, unspecified
CPT/HCPCS: 99283; A4606; Z7610

== ENCOUNTER 2017-03-21 22:07 | Emergency (ER) | payer OTHER ==
[~2017-03-21] VITALS: Ht 177.8 cm; Wt 99.8 kg
[2017-03-21 22:07] VITALS: BP 159/100
[2017-03-22] MEDS ORDERED: TRAMADOL HCL 50 MG TABLET ONE (02:47)
--- NOTE | 2017-03-22 02:51 | NUR ---
Patient given written and verbal discharge instructions. Patient verbalizes understanding of instructions. Patient is ambulatory with steady gait. Refuses offer of [place] [facility] placement. Patient given list of available shelters in surrounding area.
[2017-03-22] MEDS ORDERED: TRAMADOL HCL 50 MG TABLET PO ONE (03:00)
== END 2017-03-22 02:51 | disposition home or self-care (01) ==
LOC: ER 22:08
DX: R10.9 Unspecified abdominal pain (principal); R19.7 Diarrhea, unspecified; G89.29 Other chronic pain; K85.90 Acute pancreatitis without necrosis or infection, unspecified; K92.0 Hematemesis; F17.200 Nicotine dependence, unspecified, uncomplicated
CPT/HCPCS: 99283; A4606; Z7610

== ENCOUNTER 2017-07-05 09:32 | Emergency (ER) | payer OTHER ==
[~2017-07-05] VITALS: Ht 182.9 cm; Wt 90.7 kg
--- NOTE | 2017-07-05 09:40 | NUR ---
[id number] FROM [facility]: ETOH WITHDRAWAL, LAST DRINK YESTERDAY. ALSO C/O ABD PAIN. PATIENT IS A/OX 4. BREATHING EVEN AND UNLAOBRED. NO SOB, NAD, VSS. SAFTEY AND COMFORT MEASURES IN PLACE, AT BEDSIDE FOR EVAL.
[2017-07-05] MEDS ORDERED: PANTOPRAZOLE 40 MG VIAL ONE (09:48)
[2017-07-05] MEDS ORDERED: MORPHINE SULFATE INJ 4 MG/ML DISP.SYRIN ONE (09:48)
[2017-07-05] MEDS ORDERED: ONDANSETRON HCL/PF 4 MG/2 ML VIAL ONE (09:48)
[2017-07-05] MEDS ORDERED: MORPHINE SULFATE INJ 2 MG/ML DISP.SYRIN IV ONE (10:00)
[2017-07-05] MEDS ORDERED: IV NS 0.9% 1,000 ML BAG IV ONE (10:00)
[2017-07-05] MEDS ORDERED: ONDANSETRON HCL/PF 4 MG/2 ML VIAL IVP ONE (10:00)
[2017-07-05] MEDS ORDERED: PANTOPRAZOLE 40 MG VIAL IV ONE (10:00)
[2017-07-05 10:16] LABS: BASOPHILS # (AUTO) 0.3 /CMM (0.0-0.2); BASOPHILS % (AUTO) 3.9 % (0.0-2.0); EOSINOPHILS % (AUTO) 0.2 % (0.0-6.0); HEMATOCRIT 40 % (39-51); HEMOGLOBIN 13.5 g/dL (13.5-17.5); LYMPHOCYTES # (AUTO) 1.4 /CMM (0.8-4.8); LYMPHOCYTES % (AUTO) 19.5 % (20.0-44.0); MEAN CORPUSCULAR HEMOGLOBIN 31 PG (26.0-33.0); MEAN CORPUSCULAR HGB CONC 33 g/dl (31.0-36.0); MEAN CORPUSCULAR VOLUME 91 fL (80-96); MONOCYTES # (AUTO) 0.6 /CMM (0.1-1.30); MONOCYTES % (AUTO) 7.8 % (2.0-12.0); NEUTROPHILS % (AUTO) 68.6 % (43.0-81.0); PLATELET COUNT (AUTO) 285 /CMM (150-450); RED BLOOD CELL COUNT(AUTO) 4.41 MIL/uL (4.5-6.0); WHITE BLOOD COUNT (AUTO) 7.3 K/uL (4.3-11.0)
[2017-07-05 10:24] LABS: CALCIUM, SERUM 9.2 mg/dL (8.5-10.1); CARBON DIOXIDE 23 mmol/L (21-32); CHLORIDE 103 mmol/L (98-107); GLUCOSE 82 mg/dL (74-106); POTASSIUM 3.9 mmol/L (3.5-5.1); SODIUM SERUM 141 mmol/L (136-145); UREA NITROGEN, BLOOD 13 mg/dL (7-18)
[2017-07-05 10:30] LABS: ALANINE AMINOTRANSFERASE 42 U/L (12-78); ALBUMIN 4.1 g/dL (3.4-5.0); ALCOHOL, BLOOD 40 mg/dL (0-0); ALKALINE PHOSPHATASE 116 U/L (46-116); ASPARTATE AMINOTRANSFERASE 42 U/L (15-37); BILIRUBIN,DIRECT 0.1 mg/dL (0.0-0.2); BILIRUBIN,TOTAL 0.9 mg/dL (0.2-1.0); LIPASE 90 U/L (73-393); TOTAL PROTEIN, SERUM 7.6 g/dL (6.4-8.2)
[2017-07-05 10:32] LABS: ACETAMINOPHEN < 2 ug/ml (10-30); SALICYLATE 1.6 mg/dL (2.8-20.0)
[2017-07-05] MEDS ORDERED: LORAZEPAM INJ 2 MG/ML VIAL IV STA (11:46)
[2017-07-05] MEDS ORDERED: LORAZEPAM INJ 2 MG/ML VIAL ONE (11:59)
--- NOTE | 2017-07-05 12:45 | NUR ---
PT RECEIVED LUNCH TRAY
--- NOTE | 2017-07-05 12:50 | NUR ---
SPOKE WITH OLIMPIA FROM [facility], SAID THAT PATIENT CAN GO BACK TO THEM IF MEDICALLY CLEARED
[2017-07-05] MEDS ORDERED: CHLORDIAZEPOXIDE HCL 25 MG CAPSULE PO ONE (13:00)
[2017-07-05] MEDS ORDERED: CHLORDIAZEPOXIDE HCL 25 MG CAPSULE ONE (13:11)
[2017-07-05 14:07] VITALS: BP 164/85
--- NOTE | 2017-07-05 14:07 | NUR ---
REPORT GIVEN TO EMT AT BEDSIDE. PATIENT DISCHARGED BACK TO [facility] IN STABLE. CONDITION.
--- NOTE | 2017-07-05 14:11 | NUR ---
PATIENT TRANSFERRED TO [facility] VIA STRETCHER IN STABLE CONDITION.
== END 2017-07-05 14:11 ==
LOC: ER 09:34
DX: K29.20 Alcoholic gastritis without bleeding (principal); F10.129 Alcohol abuse with intoxication, unspecified; R45.851 Suicidal ideations; I10 Essential (primary) hypertension; F20.9 Schizophrenia, unspecified; F31.9 Bipolar disorder, unspecified; Z88.8 Allergy status to other drugs, medicaments and biological substances
CPT/HCPCS: 36415; 80048; 80076; 80329; 83690; 85025; 96361; 96374; 96375; 99285; A4606; C9113; G0480 ×2; J2060; J2270; J2405; J7030; Z7610

== ENCOUNTER 2018-01-23 14:17 | Emergency (ER) | payer OTHER ==
[~2018-01-23] VITALS: Ht 182.9 cm; Wt 94.8 kg
[2018-01-23] MEDS ORDERED: MAG HYDROX/AL HYDROX/SIMETH 30 ML UDC ONE (14:55)
[2018-01-23] MEDS ORDERED: ONDANSETRON HCL/PF 4 MG/2 ML VIAL ONE (14:55)
[2018-01-23] MEDS ORDERED: LORAZEPAM INJ 2 MG/ML VIAL ONE ×2 (14:55→17:19)
[2018-01-23] MEDS ORDERED: IV NS 0.9% 1,000 ML BAG IV ONE (15:00)
[2018-01-23] MEDS ORDERED: ONDANSETRON HCL/PF 4 MG/2 ML VIAL IVP ONE (15:00)
[2018-01-23] MEDS ORDERED: LORAZEPAM INJ 2 MG/ML VIAL IV ONE ×2 (15:00→17:30)
[2018-01-23] MEDS ORDERED: MAG HYDROX/AL HYDROX/SIMETH 30 ML UDC PO ONE (15:00)
[2018-01-23 15:07] LABS: HEMOGLOBIN 13.7 g/dL (13.5-17.5); LYMPHOCYTES # (AUTO) 1.5 /CMM (0.8-4.8); MEAN CORPUSCULAR VOLUME 92 fL (80-96); MONOCYTES # (AUTO) 0.8 /CMM (0.1-1.30)
[2018-01-23 15:13] LABS: BASOPHILS # (AUTO) 0.2 /CMM (0.0-0.2); EOSINOPHILS % (AUTO) 3.3 % (0.0-6.0); HEMATOCRIT 42 % (39-51); LYMPHOCYTES % (AUTO) 16.8 % (20.0-44.0); MEAN CORPUSCULAR HEMOGLOBIN 30 PG (26.0-33.0); MEAN CORPUSCULAR HGB CONC 33 g/dl (31.0-36.0); MONOCYTES % (AUTO) 8.7 % (2.0-12.0); NEUTROPHILS # (AUTO) 6.3 /CMM (1.8-8.9); NEUTROPHILS % (AUTO) 69.2 % (43.0-81.0); PLATELET COUNT (AUTO) 287 /CMM (150-450); RDW COEFFICIENT OF VARIATION 13.4 (11.5-15.0); RED BLOOD CELL COUNT(AUTO) 4.57 MIL/uL (4.5-6.0); WHITE BLOOD COUNT (AUTO) 9.1 K/uL (4.3-11.0)
[2018-01-23 15:17] LABS: CALCIUM, SERUM 9.2 mg/dL (8.5-10.1); CREATININE 0.8 mg/dL (0.6-1.3); POTASSIUM 3.5 mmol/L (3.5-5.1)
[2018-01-23 15:23] LABS: ALBUMIN 3.8 g/dL (3.4-5.0); BILIRUBIN,DIRECT 0.2 mg/dL (0.0-0.2); TOTAL PROTEIN, SERUM 7.4 g/dL (6.4-8.2)
[2018-01-23] MEDS ORDERED: CEPHALEXIN MONOHYDRATE 500 MG CAPSULE PO ONE ×2 (16:30→16:54)
[2018-01-23] MEDS ORDERED: SULFAMETH/TRIMETH 800/160 MG 1 UDTAB TABLET PO ONE ×2 (16:30→16:54)
[2018-01-23 16:38] LABS: APPEARANCE,URINE Clear (CLEAR); BILIRUBIN,URINE Negative (NEGATIVE); BLOOD, URINE Negative Ery/uL (NEGATIVE); COLOR,URINE Yellow (YELLOW); KETONES,URINE 15 (NEGATIVE); LEUKOCYTE ESTERASE ,URINE Negative (NEGATIVE); NITRITE, URINE Negative (NEGATIVE); PROTEIN,URINE 100 mg/dl (NEGATIVE); UGLUCOSE Negative (NEGATIVE)
[2018-01-23 16:44] LABS: PH,URINE >9.0 (5.0-8.0)
[2018-01-23 16:45] LABS: ACETAMINOPHEN > 2 ug/ml (10-30); ALCOHOL, BLOOD > 3 mg/dL (0-0); SALICYLATE > 2.8 mg/dL (2.8-20.0)
[2018-01-23 16:51] LABS: BACTERIA,URINE None seen /HPF (None Seen); RBC,URINE 0-2 /HPF (0-2); SQUAMOUS EPITHELIAL CELL,UR Few /HPF (None Seen); WBC,URINE 0-2 /HPF (0-3)
--- NOTE | 2018-01-23 17:08 | NUR ---
FRANKLYN FOR MEDICAL CLEARANCE GOING TO [facility], ETOH + NAUSEA. PT SEEN & EVAL'D BY DR. WHIPPLE. PT STABLE, DENIES CP, SOB, DIZZINESS, NAUSEA @ THIS TIME. PT HAD LUNCH, STILL ASKING FOR FOOD, NAD NOTED @ THIS TIME.
[2018-01-23] MEDS ORDERED: CHLORDIAZEPOXIDE HCL 25 MG CAPSULE PO ONE (19:00)
[2018-01-23] MEDS ORDERED: CHLORDIAZEPOXIDE HCL 25 MG CAPSULE ONE (19:05)
--- NOTE | 2018-01-23 19:16 | NUR ---
TRIP#[id number] ETA 45 MINUTES AMBULNZ
[2018-01-23] MEDS ORDERED: CLONIDINE HCL 0.1 MG TABLET ONE (20:03)
--- NOTE | 2018-01-23 20:10 | NUR ---
PT BP ELEVATED, MEDICATED PER DR. WHIPPLE'S ORDER.
[2018-01-23 20:26] VITALS: BP 148/89
[2018-01-23] MEDS ORDERED: CLONIDINE HCL 0.1 MG TABLET PO ONE (20:30)
== END 2018-01-23 20:31 ==
LOC: ER 14:18
DX: F10.239 Alcohol dependence with withdrawal, unspecified (principal); L03.114 Cellulitis of left upper limb; R10.13 Epigastric pain; I10 Essential (primary) hypertension; R11.2 Nausea with vomiting, unspecified; F32.9 Major depressive disorder, single episode, unspecified; F20.9 Schizophrenia, unspecified; Z87.19 Personal history of other diseases of the digestive system; Z88.8 Allergy status to other drugs, medicaments and biological substances; Y90.0 Blood alcohol level of less than 20 mg/100 ml
CPT/HCPCS: 36415; 80048; 80076; 80305; 80329; 81001; 83690; 85025; 96361; 96374; 96375; 96376; 99285; A4606; G0480 ×2; J2060 ×2; J2405; J7030; Z7610; 81000-TC

== ENCOUNTER 2018-07-31 02:43 | Inpatient (IN) | payer MEDICAID, OTHER ==
[~2018-07-31] VITALS: Ht 185.4 cm; Wt 95.3 kg
--- NOTE | 2018-07-31 02:55 | NUR ---
Pt FRANKLYN complaining of "stomach pain", states that he drank gin an vodka today.Pt states that he has been throwing up. Pt AAXO4. Respirations even and unlabored. Pt put on the monitor and pending eval from KAMLA KELLEY.
--- NOTE | 2018-07-31 03:10 | NUR ---
Mathematician at bedside for lab draw. Labs sent.
--- NOTE | 2018-07-31 03:15 | NUR ---
Pt hypertensive and tachycardic on the monitor. ER Aware.
[2018-07-31] MEDS ORDERED: ONDANSETRON HCL/PF 4 MG/2 ML VIAL ONE (03:25)
[2018-07-31 03:30] LABS: BASOPHILS # (AUTO) 0.1 /CMM (0.0-0.2); BASOPHILS % (AUTO) 1.4 % (0.0-2.0); EOSINOPHILS % (AUTO) 1.4 % (0.0-6.0); HEMATOCRIT 39 % (39-51); HEMOGLOBIN 12.8 g/dL (13.5-17.5); LYMPHOCYTES # (AUTO) 2.1 /CMM (0.8-4.8); LYMPHOCYTES % (AUTO) 44.5 % (20.0-44.0); MEAN CORPUSCULAR HGB CONC 33 g/dl (31.0-36.0); MEAN CORPUSCULAR VOLUME 96 fL (80-96); MONOCYTES # (AUTO) 0.3 /CMM (0.1-1.30); MONOCYTES % (AUTO) 6.5 % (2.0-12.0); NEUTROPHILS # (AUTO) 2.1 /CMM (1.8-8.9); NEUTROPHILS % (AUTO) 46.2 % (43.0-81.0); PLATELET COUNT (AUTO) 194 /CMM (150-450); RED BLOOD CELL COUNT(AUTO) 4.05 MIL/uL (4.5-6.0); WHITE BLOOD COUNT (AUTO) 4.6 K/uL (4.3-11.0)
[2018-07-31] MEDS ORDERED: ONDANSETRON HCL/PF 4 MG/2 ML VIAL IVP ONE (03:30)
[2018-07-31] MEDS ORDERED: IV NS 0.9% 500 ML BAG IV ONE (03:30)
[2018-07-31 03:36] LABS: CALCIUM, SERUM 8.3 mg/dL (8.5-10.1); CREATININE 0.9 mg/dL (0.6-1.3); POTASSIUM 3.2 mmol/L (3.5-5.1)
[2018-07-31 03:42] LABS: ALBUMIN 3.9 g/dL (3.4-5.0); BILIRUBIN,DIRECT 0.1 mg/dL (0.0-0.2); BILIRUBIN,TOTAL 0.4 mg/dL (0.2-1.0); TOTAL PROTEIN, SERUM 7.5 g/dL (6.4-8.2)
--- NOTE | 2018-07-31 04:03 | NUR ---
PAGED LINTER SAW SHARPENER COMMERCIAL LINES ASSISTANT
--- NOTE | 2018-07-31 04:04 | NUR ---
ER DOC ON PHONE WITH DIGESTER OPERATOR
[2018-07-31 04:14] LABS: ALCOHOL, BLOOD 290 mg/dL (0-0)
[2018-07-31 04:21] LABS: APPEARANCE,URINE CLEAR (CLEAR); BILIRUBIN,URINE NEGATIVE (NEGATIVE); BLOOD, URINE TRACE Ery/uL (NEGATIVE); COLOR,URINE YELLOW (YELLOW); KETONES,URINE NEGATIVE (NEGATIVE); LEUKOCYTE ESTERASE ,URINE NEGATIVE (NEGATIVE); NITRITE, URINE NEGATIVE (NEGATIVE); PH,URINE 7.5 (5.0-8.0); PROTEIN,URINE TRACE mg/dl (NEGATIVE); UGLUCOSE NEGATIVE (NEGATIVE); UROBILINOGEN,URINE 0.2 EU/dL (0.2)
[2018-07-31] MEDS ORDERED: Z GUARD REMEDY 2 OZ OINT TP PRN (04:30)
[2018-07-31] MEDS ORDERED: HYDROCODONE/APAP 5/325MG 1 EACH TABLET PO PRN (04:30)
[2018-07-31] MEDS ORDERED: MAG HYDROX/AL HYDROX/SIMETH 30 ML UDC PO PRN (04:30)
[2018-07-31] MEDS ORDERED: ONDANSETRON HCL/PF 4 MG/2 ML VIAL IVP PRN (04:30)
[2018-07-31] MEDS ORDERED: MAGNESIUM HYDROXIDE 30 ML UDC PO PRN (04:30)
[2018-07-31] MEDS ORDERED: ACETAMINOPHEN 325 MG TABLET PO PRN (04:30)
[2018-07-31] MEDS ORDERED: ASPIRIN EC 325 MG TABLET.DR PO ONE (04:30)
[2018-07-31 04:50] LABS: MAGNESIUM 1.8 mg/dL (1.8-2.4); PHOSPHORUS 2.9 mg/dL (2.5-4.9)
--- NOTE | 2018-07-31 05:35 | NUR ---
CALLED HOUSE SUP FOR TELE BED
--- NOTE | 2018-07-31 05:47 | NUR ---
Patient is resting comfortably in bed with eyes closed. Easily aroused. NAD noted.
--- NOTE | 2018-07-31 05:50 | NUR ---
CALLED NURSING SUP FOR TELE BED
[2018-07-31 06:12] LABS: RBC,URINE 0-2 /HPF (0-2); WBC,URINE 0-2 /HPF (0-3)
[2018-07-31 06:13] LABS: BACTERIA,URINE Rare /HPF (None Seen); SQUAMOUS EPITHELIAL CELL,UR Rare /HPF (None Seen)
--- NOTE | 2018-07-31 06:33 | NUR ---
CALLED NURSING LINING CUTTER REQUESTING FOR TELE BED
--- NOTE | 2018-07-31 06:57 | NUR ---
REPORT GIVEN TO RETAIL SALES MANAGERMELCHOR TOPETE FOR CAMILO
[2018-07-31] MEDS: POTASSIUM CL. PREMIX PERIPHER. 50 ML IV SCH ×6 (07:00→12:54)
--- NOTE | 2018-07-31 07:30 | NUR ---
CABLE TESTER NOTES PT ARRIVED ONTO THE UNIT VIA GURNEY @0700 FROM THE EMERGENCY ROOM. ACCORDING TO THE PATIENT HE HAD BEEN "DRINKING BOTTLES AND BOTTLES OF VODKA AND GIN". PT COMPLAINS THAT HE WAS THROWING UP A LOT AND HAD ABD PAIN. UPON ADMISSION PATIENT BEGAN SLEEPING COMFORTABLY. PT TELE MONITORED AT [facility] WITH BBB. PT HAS A LEFT THUMB #18 IV INTACT. ALL PATIENT BELONGINGS ACCOUNTED FOR AND DOCUMENTED. PT ORIENTED TO THE USE OF THE CALL LIGHT. SAFETY PRECAUTIONS IN PLACE, BED IN LOWEST LOCKED POSITION, X2 SIDE RAILS UP AND CALL LIGHT WITHIN REACH. WILL CONTINUE TO MONITOR.
[2018-07-31 08:00] VITALS: BP 132/87
[2018-07-31] MEDS: IV NS 0.9% 1,000 ML IV PRN (08:37)
[2018-07-31] MEDS: PANTOPRAZOLE 40 MG VIAL IV SCH (08:58)
[2018-07-31] MEDS: LISINOPRIL (10MG) 10 MG TABLET PO SCH (08:58)
[2018-07-31] MEDS ORDERED: NIFE60TA72 PO (08:59)
[2018-07-31] MEDS ORDERED: HYDR-4354 PO (08:59)
[2018-07-31] MEDS ORDERED: SERT100T PO (08:59)
[2018-07-31] MEDS ORDERED: AMLO5TAB4 PO (08:59)
[2018-07-31] MEDS: METOPROLOL TARTRATE 25 MG TABLET PO SCH ×2 (08:59→16:54)
[2018-07-31] MEDS ORDERED: POTASSIUM CHLORIDE 10 MEQ/50 ML PREMIXED IVPB FOR PERIPHERAL LINE IV SCH (11:30)
--- NOTE | 2018-07-31 15:13 | NUR ---
Patent Legal Assistant Consult: SW received consult re: possible homeless. Patient is a 47 year-old male admitted to [facility] for ETOH intoxication. Per chart, the patient presented to the ED with complaints of abdominal pain. Patient admitted to drinking Gin and Vodka today and could not state how much he drank. Pt stated, "I drink bottles...once I get started I never stop." Per H&P, pt has long history of ETOH abuse, Pancreatitis, HTN, Bipolar, Depression, and Schizophrenia. SW met with patient at bedside to discuss above concerns. Patient is alert and oriented x4. Patient admitted to being homeless staying "here and there." Patient seemed somewhat guarded with this production underwriter and refused to disclose an address/area in which he has been staying. Patient reported that he would like to be discharged to [facility] when he is medically cleared [Address: [address] [place] [id number]; ]. Per patient, he has been experiencing a lot of depression lately from "stress" that the patient would not disclose. Patient reported that he is feeling suicidal with a plan to "drink myself to if I can." Patient agreed to contract for safety and stated that he wants to get help at [facility]. SW discussed with patient his ETOH use history. Patient reports that he drinks Gin and Vodka. Patient was unable to state how much he drinks at a time, but stated, "Once I get started, I never stop." Patient admitted to drinking Gin and Vodka today. Patient also reported that he has been to rehab three times with his most recent rehabilitation approximately 2 years ago at a Rehab in [place], [place]. Patient could not remember the name or address of the facility. SW provided education about local substance abuse and ETOH treatment centers, and patient was accepting of the information and resources. Patient will be provided with resources to [facility] ([facility]) Substance Abuse ([phone]); [facility] [[address] [facility] [place] [address]; ]; [facility] [[address] [facility] [place] [address]; [phone]]; and [facility] [[address] [address]; [phone]] upon discharge. BRETT consulted and collaborated with MELCHOR Reid and BRETT Munguia about this case. BRETT endorsed needs to BRETT Munguia for further follow-up. BRETT will continue to follow-up.
[2018-07-31] MEDS: LORAZEPAM INJ 2 MG/ML VIAL IV PRN (15:23)
[2018-07-31 16:00] VITALS: BP 145/106
[2018-07-31 16:28] VITALS: BP 155/101
--- NOTE | 2018-07-31 18:29 | NUR ---
RN CLOSING NOTES PT AWAKE AND ALERT. PT COMPLAINS THAT HE WANTS TO EAT. NO COMPLAINTS OF PAIN, SOB OR DISTRESS DURING SHIFT. PT NOTED TO HAVE WITHDRAWAL SYMPTOMS. GIVEN ATIVAN. PT HAS A LEFT THUMB #18 IV RUNNING NS, PT TOLERATING WELL. SAFETY PRECAUTIONS IN PLACE, BED IN LOWEST LOCKED POSITION, X2 SIDE RAILS UP AND CALL LIGHT WITHIN REACH. WILL ENDORSE TO TRUCKLOAD OWNER OPERATOR NURSE FOR CONTINUITY OF CARE.
--- NOTE | 2018-07-31 19:30 | NUR ---
RN NOTES RECEIVED PT. AWAKE ON BED, A/OX2, AMBULATORY, NO PAIN NOTED, NO AOB, CALL LIGHT WITHIN REACH, SIDERIALSUPX2,CONTINUE TO MONITOR
[2018-07-31 20:00] VITALS: BP 192/104
[2018-07-31] MEDS ORDERED: hydrALAZINE HCL IV 20 MG VIAL IV PRN (21:00)
--- NOTE | 2018-07-31 21:05 | NUR ---
RN NOTES SPOKE TO REILLY COTTRELL-MARITZA REGARDING PT. BLOOD PRESSURE OF 192/104.. GOT AN ORDERED TO GIVE HYDRALAZINE 10MG IV PRN, ORDER NOTED AND CARRIED OUT
--- NOTE | 2018-07-31 21:42 | NUR ---
RN NOTES COMPLAINED OF ABDOMINAL PAIN- NORCO 5/325 MG PO GIVEN ORDERED, V/S STABLE
[2018-07-31] MEDS: ATORVASTATIN 10 MG TABLET PO SCH (21:43)
--- NOTE | 2018-07-31 22:00 | NUR ---
RN NOTES COMPLAINED OF DYSPEPSIA- MAALOX 30 ML PO GIVEN ORDERED
[2018-07-31] MEDS: ZOLPIDEM TARTRATE 5 MG TABLET PO PRN (23:11)
--- NOTE | 2018-07-31 23:11 | NUR ---
RN NOTES PT. ASKED FOR SLEEPING PILL- AMBIEN 5MG PO GIVEN ORDERED
[2018-08-01] MEDS: IV NS 0.9% 1,000 ML IV PRN (01:57)
[2018-08-01 06:17] LABS: BASOPHILS % (AUTO) 1.1 % (0.0-2.0); EOSINOPHILS % (AUTO) 2.2 % (0.0-6.0); HEMATOCRIT 38 % (39-51); HEMOGLOBIN 12.6 g/dL (13.5-17.5); LYMPHOCYTES # (AUTO) 1.7 /CMM (0.8-4.8); LYMPHOCYTES % (AUTO) 43.7 % (20.0-44.0); MEAN CORPUSCULAR HGB CONC 33 g/dl (31.0-36.0); MEAN CORPUSCULAR VOLUME 95 fL (80-96); MONOCYTES # (AUTO) 0.6 /CMM (0.1-1.30); MONOCYTES % (AUTO) 15.6 % (2.0-12.0); NEUTROPHILS # (AUTO) 1.4 /CMM (1.8-8.9); NEUTROPHILS % (AUTO) 37.4 % (43.0-81.0); PLATELET COUNT (AUTO) 180 /CMM (150-450); RED BLOOD CELL COUNT(AUTO) 3.99 MIL/uL (4.5-6.0); WHITE BLOOD COUNT (AUTO) 3.9 K/uL (4.3-11.0)
[2018-08-01 06:50] LABS: CALCIUM, SERUM 8.5 mg/dL (8.5-10.1); CREATININE 0.9 mg/dL (0.6-1.3); MAGNESIUM 1.6 mg/dL (1.8-2.4); PHOSPHORUS 2.7 mg/dL (2.5-4.9); POTASSIUM 3.4 mmol/L (3.5-5.1)
[2018-08-01 06:53] LABS: THYROID STIMULATING HORMONE 0.354 uIU/mL (0.358-3.74)
--- NOTE | 2018-08-01 06:56 | NUR ---
RN NOTES AWAKE, MORNING CARE RENDERED, DENIES PAIN, NO SOB,. CALL LIGHT WITHIN REACH, [id number], PT. NEEDS ATTENDED
--- NOTE | 2018-08-01 07:16 | NUR ---
RN OPENING NOTES PT WAS RECEIVED SLEEPING IN BED AT LOWEST AND LOCKED POSITION WITH SIDE RAILS UP X2, A/O X4, BREATHING EVEN AND UNLABORED ON RA, NO S/S OF PAIN OR DISTRESS CURRENTLY NOTED, NOTED TO HAVE IV IN HIS LEFT THUMB THAT IS PATENT AND INTACT, CURRENTLY NPO EXCEPT FOR MEDS, BP NOTED TO BE ON THE HIGH SIDE THROUGHOUT THE NIGHT 170S, SAFETY PRECAUTIONS IN PLACE, CALL LIGHT WITHIN REACH, WILL MONITOR ACCORDINGLY.
[2018-08-01 08:00] VITALS: BP 160/92
[2018-08-01] MEDS: ASPIRIN EC 81 MG TABLET.DR PO SCH (08:27)
[2018-08-01] MEDS: METOPROLOL TARTRATE 25 MG TABLET PO SCH ×2 (08:27→16:17)
[2018-08-01] MEDS: LISINOPRIL (10MG) 10 MG TABLET PO SCH (08:28)
[2018-08-01] MEDS: PANTOPRAZOLE 40 MG VIAL IV SCH (08:28)
[2018-08-01] MEDS ORDERED: POTASSIUM CHLORIDE 20 MEQ TAB.PRT.SR PO ONE (08:30)
[2018-08-01] MEDS: Magnesium 1GM/D5W 100ML PREMIX 100 ML IV SCH ×2 (08:39→09:50)
--- NOTE | 2018-08-01 10:00 | NUR ---
RN NOTES CHANGED DIET TO REGULAR AND PT IS ABLE TO TOLERATE FOOD
[2018-08-01 16:00] VITALS: BP 163/101
--- NOTE | 2018-08-01 17:30 | NUR ---
RN NOTE PT DOES NOT WANT IV FLUIDS CONNECTED TO HIM ANYMORE STATING IT IS MAKING HIM GO TO THE BATHROOM TO MUCH. PO INTAKE FOR FLUIDS IS ADEQUATE. WILL MONITOR ACCORDINGLY
--- NOTE | 2018-08-01 18:22 | NUR ---
RN CLOSING NOTES PT IN BED AT LOWEST AND LOCKED POSITION WITH SIDE RAILS UP X2, A/O X4, BREATHING EVEN AND UNLABORED ON RA, NO S/S OF PAIN OR DISTRESS CURRENTLY NOTED, NOTED TO HAVE IV IN HIS LEFT THUMB THAT IS PATENT AND INTACT, BP WAS WNL, SAFETY PRECAUTIONS IN PLACE, CALL LIGHT WITHIN REACH, ALL NEEDS ATTENDED TO, WILL ENDORSE TO SAP ANALYST FOR CAMILO.
--- NOTE | 2018-08-01 19:00 | NUR ---
MS RN NOTES RECEIVED PT IN BED A/O X4 AND ABLE TO MAKE NEEDS KNOWN. ALL SAFETY MEASURES IN PLACE, BED AT LOWEST AND LOCKED POSITION WITH SIDE RAILS UP X2. BREATHING EVEN AND UNLABORED ON RA WITH NO S/S OF ACUTE DISTRESS OR SOB. IV IN LEFT THUMB #18G IS PATENT AND INTACT. CALL LIGHT WITHIN REACH. WILL CONTINUE TO MONITOR.
[2018-08-01 20:00] VITALS: BP 144/96
[2018-08-01] MEDS: ATORVASTATIN 10 MG TABLET PO SCH (21:14)
[2018-08-01] MEDS: ZOLPIDEM TARTRATE 5 MG TABLET PO PRN (21:18)
[2018-08-01] MEDS: LORAZEPAM INJ 2 MG/ML VIAL IV PRN (22:42)
--- NOTE | 2018-08-02 06:32 | NUR ---
MS RN NOTES PT IN BED ASLEEP BUT EASILY AWOKEN VERBALLY OR BY TOUCH. PT A/O X4 AND ABLE TO MAKE NEEDS KNOWN. ALL SAFETY MEASURES IN PLACE, BED AT LOWEST AND LOCKED POSITION WITH SIDE RAILS UP X2. BREATHING EVEN AND UNLABORED ON RA WITH NO S/S OF ACUTE DISTRESS OR SOB. IV IN LEFT THUMB #18G IS PATENT AND INTACT. PT CONTINENT, AMBULATORY, WITH SKIN INTACT. CALL LIGHT WITHIN REACH. WILL ENDORSE TO ONCOMING NURSE FOR CONTINUATION OF CARE.
[2018-08-02 07:15] LABS: BASOPHILS % (AUTO) 0.5 % (0.0-2.0); EOSINOPHILS % (AUTO) 2.5 % (0.0-6.0); HEMATOCRIT 40 % (39-51); HEMOGLOBIN 13.3 g/dL (13.5-17.5); LYMPHOCYTES # (AUTO) 1.4 /CMM (0.8-4.8); LYMPHOCYTES % (AUTO) 31.3 % (20.0-44.0); MEAN CORPUSCULAR HGB CONC 33 g/dl (31.0-36.0); MEAN CORPUSCULAR VOLUME 95 fL (80-96); MONOCYTES # (AUTO) 0.6 /CMM (0.1-1.30); MONOCYTES % (AUTO) 12.4 % (2.0-12.0); NEUTROPHILS # (AUTO) 2.4 /CMM (1.8-8.9); NEUTROPHILS % (AUTO) 53.3 % (43.0-81.0); PLATELET COUNT (AUTO) 167 /CMM (150-450); RED BLOOD CELL COUNT(AUTO) 4.21 MIL/uL (4.5-6.0); WHITE BLOOD COUNT (AUTO) 4.5 K/uL (4.3-11.0)
--- NOTE | 2018-08-02 07:24 | NUR ---
MS RN OPENING NOTES RECEIVED PT AWAKE IN BED IN NO ACUTE SIGNS OF DISTRESS. A/O X4. ABLE TO MAKE NEEDS KNOWN, NO C/O PAIN OR DISCOMFORTS AT THIS TIME. ON ROOM AIR, BREATHING EVEN AND UNLABORED. IV ACCESS ON LEFT THUMB INTACT AND PATENT, IVF REFUSED. SAFETY PRECAUTIONS IN PLACE. BED IN LOW LOCKED POSITION WITH SR UP X2. CALL LIGHT WITHIN REACH. WILL MONITOR ACCORDINGLY.
[2018-08-02 07:42] LABS: CALCIUM, SERUM 8.9 mg/dL (8.5-10.1); CREATININE 0.7 mg/dL (0.6-1.3); POTASSIUM 3.7 mmol/L (3.5-5.1)
[2018-08-02 08:00] VITALS: BP 139/94
[2018-08-02] MEDS: PANTOPRAZOLE 40 MG VIAL IV SCH (08:19)
[2018-08-02] MEDS: METOPROLOL TARTRATE 25 MG TABLET PO SCH ×2 (08:20→17:02)
[2018-08-02] MEDS: LISINOPRIL (10MG) 10 MG TABLET PO SCH (08:20)
[2018-08-02] MEDS: ASPIRIN EC 81 MG TABLET.DR PO SCH (08:20)
--- NOTE | 2018-08-02 12:52 | NUR ---
RN NOTES PATIENT STATED THAT HE PLANS TO HARM HIMSELF UPON DISCHARGE BY EITHER DRINKING HIMSELF TO OR RUN INTO INCOMING TRAFFIC. MEASUREMENT DEPARTMENT CHIEF CLERK AND MD MADE AWRE.
[2018-08-02 16:00] VITALS: BP 145/93
--- NOTE | 2018-08-02 18:59 | NUR ---
MS RN CLOSING NOTES PT IN BED AWAKE AND WATCHING TV. A/O X4. ABLE TO MAKE NEEDS KNOWN. ALL NEEDS AND CARE ATTENDED WELL. ON ROOM AIR, TOLERATING WELL WITH NO ACUTE DISTRESS NOTED THROUHOUT THE DAY. IV ACCESS ON LEFT THUMB INTACT AND PATENT, IVF REFUSED. SAFETY MEASURES IN PLACE. BED IN LOW LOCKED POSITION WITH SR UP X2. CALL LIGHT WITHIN REACH. WILL ENDORSED TO NATIONAL INVESTIGATIVE PRODUCER NURSE FOR CAMILO.
--- NOTE | 2018-08-02 19:30 | NUR ---
MS/RN OPENING NOTES PT RECEIVED AWAKE, RESTING COMFORTABLY IN BED. ON ROOM AIR, BREATHING EVEN AND UNLABORED. DENIES SOB AND PAIN AT THIS TIME. IV TO LEFT THUMB PATENT AND INTACT. DC PLANNING, AWAITING BED TO OPEN AT FACILITY. BED IN LOW/LOCKED POSITION WITH CALL LIGHT IN REACH. BILATERAL UPPER SIDE RAILS IN PLACE. WILL CONTINUE TO MONITOR
[2018-08-02 20:00] VITALS: BP 165/104
[2018-08-02] MEDS: ATORVASTATIN 10 MG TABLET PO SCH (21:28)
[2018-08-02] MEDS: ZOLPIDEM TARTRATE 5 MG TABLET PO PRN (21:28)
--- NOTE | 2018-08-02 22:30 | NUR ---
MS/RN NOTES PT REQUESTING TO TAKE SHOWER. HUMAN RESOURCES SPECIALIST, SIMBA OKAYED TO TAKE SHOWER
[2018-08-03] MEDS: LORAZEPAM INJ 2 MG/ML VIAL IV PRN ×3 (03:52→16:51)
--- NOTE | 2018-08-03 04:00 | NUR ---
MS/RN NOTES IV INFILTRATED. REINSERTED TO RFA #22, GOOD BLOOD RETURN, FLUSHES WELL. PT C/O FEELING ANXIOUS. BUE NOTED TO BE SHAKING. ADMINISTERED PRN ATIVAN ORDERED.
--- NOTE | 2018-08-03 07:20 | NUR ---
MS RN OPENING NOTES RECEIVED PT RESTING IN BED. NOT IN ANY RESPIRATORY DISTRES. BREATHING EVEN WITHOUT SOB NOTED. PIV TO RFA G22 SL, INTACT AND PATENT. KEPT IN LOW BED LOCKED POSITION WITH SR X2. CALL LIGHT KEPT WITHIN REACH. WILL CONTINUE TO MONITOR.
--- NOTE | 2018-08-03 07:48 | NUR ---
MS/RN CLOSING NOTES PT RESTING COMFORTABLY IN BED. REMAINS ON ROOM AIR, BREATHING EVEN AND UNLABORED. DENIES SOB AND PAIN AT THIS TIME. IV TO RFA PATENT AND INTACT, HOWEVER REFUSING IVF. NO SIGNIFICANT CHANGES OVERNIGHT. ALL NEEDS MET. KEPT COMFORTABLE DURING SHIFT. AWAITING BED TO OPEN AT FACILITY. BED IN LOW/LOCKED POSITION WITH CALL LIGHT IN REACH. BILATERAL UPPER SIDE RAILS IN PLACE. ENDORSED TO DAY SHIFT RN CAMILO.
[2018-08-03 08:00] VITALS: BP 160/103
[2018-08-03] MEDS: LISINOPRIL (10MG) 10 MG TABLET PO SCH (08:34)
[2018-08-03] MEDS: ASPIRIN EC 81 MG TABLET.DR PO SCH (08:34)
[2018-08-03] MEDS: METOPROLOL TARTRATE 25 MG TABLET PO SCH ×2 (08:35→16:51)
[2018-08-03] MEDS: PANTOPRAZOLE 40 MG VIAL IV SCH (08:35)
[2018-08-03] MEDS ORDERED: VITAMINS A AND D 56.7 GM TUBE TP PRN (15:30)
[2018-08-03] MEDS ORDERED: POLYVINYL ALCOHOL 15 ML BOTTLE EACHEYE PRN (15:30)
[2018-08-03 16:00] VITALS: BP 129/77
--- NOTE | 2018-08-03 18:58 | NUR ---
RN NOTES URINE SPECIMEN COLLECTED FOR DRUG SCREEN TEST. CALL LAB TO PICK SPECIMEN FROM [facility].
--- NOTE | 2018-08-03 18:58 | NUR ---
MS RN CLOSING NOTES PT SITING COMFORTABLY ON THE EDGE OF BED, HAVING SNACKS. REMAINS ON ROOM AIR, BREATHING EVEN AND UNLABORED. DENIES PAIN OR ANY DISCOMFORT VERBALIZED AT THIS TIME. PIV TO RFA SL, PATENT AND INTACT. BONDING SUPERVISOR/DARCY CAME AND ARRANGED [facility]. URINE SPECIMEN COLLECTED FOR DRUG SCREEN. ALL NEEDS ATTENDED. KEPT COMFORTABLE, CLEAN AND DRY.SAFETY MEASURES OBSERVED. BED IN LOW/LOCKED POSITION WITH CALL LIGHT IN REACH. BILATERAL UPPER SIDE RAILS X2. WILL ENDORSE TO SKI TECHNICIAN NURSE FOR CAMILO.
--- NOTE | 2018-08-03 19:20 | NUR ---
MS/RN OPENING NOTES PT AWAKE, RESTING COMFORTABLY IN BED. ON ROOM AIR, BREATHING EVEN AND UNLABORED. DENIES SOB AND PAIN AT THIS TIME. IN NO ACUTE DISTRESS. IV TO RFA PATENT AND INTACT. BED IN LOW/LOCKED POSITION WITH CALL LIGHT IN REACH, BILATERAL UPPER SIDE RAILS IN PLACE AND HOB ELEVATED. WILL CONTINUE TO MONITOR
--- NOTE | 2018-08-03 19:50 | NUR ---
MS/RN NOTES PLAN FOR POSSIBLE DC TO [facility]. PT STATES THAT HE IS NOT GOING "ANYWHERE BUT [place]". AWAITING RESULT OF URINE DRUG SCREEN. SKYLAR [facility] CALLED AND MAKE AWARE. PER ANDREINA, THERE ARE NO BEDS AVAILABLE AT [place] AND IF DRUG SCREEN RESULT IS NOT AVAILABLE YET, CM WITH HAVE TO FOLLOW UP TOMORROW. DAY AND NIGHT APPLICATION TESTER'S MADE AWARE.
[2018-08-03 20:00] VITALS: BP_SYST 161; BP_DIAS 100; BP_DIAS 109
[2018-08-03] MEDS: ZOLPIDEM TARTRATE 5 MG TABLET PO PRN (21:40)
[2018-08-03] MEDS: ATORVASTATIN 10 MG TABLET PO SCH (21:40)
[2018-08-04] MEDS: LORAZEPAM INJ 2 MG/ML VIAL IV PRN ×3 (01:09→13:24)
--- NOTE | 2018-08-04 07:48 | NUR ---
MS/RN CLOSING NOTES PT AWAKE, AMBULATING IN ROOM. ON ROOM AIR, BREATHING EVEN AND UNLABORED. DENIES SOB AND PAIN AT THIS TIME. IV TO RFA PATENT AND INTACT. REFUSING IVF, ADEQUATE PO INTAKE. NO SIGNIFICANT CHANGES OVERNIGHT. ALL NEEDS MET. SLEPT WELL DURING SHIFT. AWAITING PLACEMENT, CM ANDREINA AWARE. PT REFUSING PLACEMENT ANYWHERE OTHER THAN [place]. NO BEDS AVAILABLE AT THIS TIME. CM TO FOLLOW UP TODAY. URINE DRUG SCREEN COLLECTED AND RESULTED. BED IN LOW/LOCKED POSITION WITH CALL LIGHT IN REACH, BILATERAL UPPER SIDE RAILS IN PLACE AND HOB ELEVATED. ENDORSED TO DAY SHIFT RN CAMILO.
[2018-08-04 08:00] VITALS: BP 161/97
--- NOTE | 2018-08-04 08:00 | NUR ---
m/s cashier office: initial assessment received pt in bed awake, a/ox4; ambulatory. pt requesting his medications and refusing to have his b/p taken prior to his b/p medications. educated pt on how to take his antihypertensive medications and pt still insisting to have his meds first then take the blood pressure after 30 mins. pt very manipulative and easily gets agitated when teaching and education provided on medication safety. will continue to monitor.
[2018-08-04] MEDS: METOPROLOL TARTRATE 25 MG TABLET PO SCH (08:36)
[2018-08-04] MEDS: LISINOPRIL (10MG) 10 MG TABLET PO SCH (08:36)
[2018-08-04] MEDS: ASPIRIN EC 81 MG TABLET.DR PO SCH (08:36)
[2018-08-04] MEDS: PANTOPRAZOLE 40 MG VIAL IV SCH (10:00)
--- NOTE | 2018-08-04 10:05 | NUR ---
BRETT met with pt. bedside to discuss discharge plan, since pt. only wants to go to [facility] location. Per patient, he is still experiencing a lot of depression lately from "stress" and is feeling suicidal with a plan to "drink myself to if I can." Patient agreed to contract for safety and stated that he wants to get help at [facility]. BRETT informed pt. that she will refer him to [facility], however BRETT did inquire with pt. what is his plan B if [facility] does not have a bed available. Pt. stated he will go to [place] or any other location. BRETT sent clinical referral packet to intake at [facility] .
--- NOTE | 2018-08-04 10:42 | NUR ---
BRETT received a call from Alyssa in intake from [facility] informing SW to fax note stating pt. is still suicidal. Alyssa also informed SW to [facility]. BRETT contacted [facility] and spoke with Carlos who informed SW he did not receive the packet from Alyssa. He informed SW he will contact Alyssa and follow up with BRETT. BRETT also received a call from Blanca in intake [facility] informing SW they might take pt., however, pt. need serum alcohol level prior to acceptance. BRETT called pt's RN Gustavo and informed him regarding getting an alcohol level stat for the pt.
--- NOTE | 2018-08-04 12:00 | NUR ---
m/s manager urology: notes lunch served and upset that he wasn't given a double portion, pt request for cheese burger. dietary dept notified and made aware of his request. pt remains easily agitated, but no aggressive behavior. will continue to monitor.
--- NOTE | 2018-08-04 14:04 | NUR ---
BRETT faxed alcohol level lab report and D/C summary to intake at [facility] at .
--- NOTE | 2018-08-04 14:20 | NUR ---
BRETT called Blanca at intake at [facility] to inquire if they will be accepting pt. Blacna confirmed that they will accept the pt. and ambulance will be picking up the patient in 45 minutes to an hour. BRETT contacted pt's RN Gustavo and informed him regarding the time ambulance is picking up the pt. BRETT also updated director of casework department Kathleen Sandoval regarding ambulance cone picker. No other social service needs are requested at this time.
--- NOTE | 2018-08-04 14:30 | NUR ---
m/s electronic induction hardener: d'c instructions gera (s.w.) called and informed me that pt will be leaving in 45mins to 1 hour by ambulance, pt made aware and request to shower. discharge instructions given and verbalized understanding. h/l removed with tip intact with no bleeding, no redness, and no swelling noted.
--- NOTE | 2018-08-04 14:50 | NUR ---
m/s air defense specialist: notes ambulance here and report given to one of the crew and informed them that pt is having a shower.
--- NOTE | 2018-08-04 15:00 | NUR ---
m/s deli cutter slicer: notes report given to jc (rn) at [facility] for continuity of care.
--- NOTE | 2018-08-04 15:10 | NUR ---
m/s auto haulaway driver: notes faye okeefe (next of kin) [phone] notified, but no answer, just keeps ringing and no answering machine. pt still in the shower. ambulance waiting patiently.
--- NOTE | 2018-08-04 15:45 | NUR ---
m/s composite boat builder: notes pt finished taking his shower and pt is all dressed up, but his b/p noted to be elevated. dr. mercado notified with order to give hydralazine 25mg po x 1 now. order read back and carried out and acknowledged. pt refusing to go now and wants to [place] now. gera (s.w.) to come up and talk to pt.
[2018-08-04] MEDS ORDERED: hydrALAZINE HCL 25 MG TABLET PO ONE (16:00)
--- NOTE | 2018-08-04 16:00 | NUR ---
m/s devops engineer: notes pt wants to go [facility] instead of going to [facility], pt insisting to go to [facility]. ambulance left at this time after signing off. social insurance analyst gera talking to pt and pt still insisted. risks and consequences involving in leaving the hospital at this time, the benifits of continued treatment and hospitalization; also teaching provided on the risk having a high blood pressure, pt still wants to go [facility]. pt signed the homeless waiver form and also pt signed ama form and discharge ama instructions. pt refused all d'c ama copies. dr. mercado notified and made aware. cn aware.
[2018-08-04 16:05] VITALS: BP 187/100
--- NOTE | 2018-08-04 16:05 | NUR ---
m/s mold breaker: notes hydralazine 25mg po given as ordered. will continue to monitor. pt still insisting to leave now.
--- NOTE | 2018-08-04 16:11 | NUR ---
m/s match marker: discharged [facility] pt left hospital against medical advice via ambulatory with bus tap.
--- NOTE | 2018-08-04 16:11 | NUR ---
BRETT received a call from MELCHOR Chen informing SW that pt's blood pressure is high and ambulance is not able to transport pt. to [facility]. BRETT met with pt. and pt. is adamant about leaving [facility]. BRETT offered pt. homeless penitentiary placement and resources, however, pt. declined. Pt. stated, " I am going to [place]." Homeless patient Waiver form was signed by the pt. Pt. was given TAP card as well. AISSATOU Shultz was informed about pt's discharge plan. BRETT called intake at [facility] and informed Kim that pt. decided to go [facility] and will not be coming to [facility].
== END 2018-08-04 16:11 | disposition left against medical advice (07) | DRG 770 ==
LOC: ER 02:53 → TELE 07:27 → MED 08:43
PROVIDERS: ADMIT Family Medicine; ATTEND Family Medicine
DX: F10.129 Alcohol abuse with intoxication, unspecified (principal); K85.90 Acute pancreatitis without necrosis or infection, unspecified; E83.42 Hypomagnesemia; F20.9 Schizophrenia, unspecified; E87.6 Hypokalemia; I10 Essential (primary) hypertension; Z59.0 Homelessness; Z82.49 Family history of ischemic heart disease and other diseases of the circulatory system; Z83.3 Family history of diabetes mellitus; Z88.8 Allergy status to other drugs, medicaments and biological substances; F32.9 Major depressive disorder, single episode, unspecified; F17.200 Nicotine dependence, unspecified, uncomplicated; Z79.899 Other long term (current) drug therapy
CPT/HCPCS: 36415; 80048-TC; 80061-TC; 80076-TC; 80305; 81000-TC; 83690-TC; 83735-TC; 84100-TC; 84443-TC; 84484-TC; 85025-TC; 87081-TC; 93307-TC; C9113; G0378; G0480; J0360; J2060; J2405; J3475; J3480; J7030; J7040

== ENCOUNTER 2018-09-03 23:30 | Emergency (ER) | payer OTHER ==
[~2018-09-03] VITALS: Ht 177.8 cm; Wt 90.7 kg
[~2018-09-03 23:30] MED LIST: AMLO5TAB4 PO; HYDR-4354 PO; NIFE60TA72 PO; SERT100T PO
--- NOTE | 2018-09-03 23:46 | NUR ---
PT BIBRA FOR ABD PAIN X 2DAYS; REPORTS OF FEELING "SICK"; PT AAOX4, PT ON MONITOR, VSS, NAD NOTED, PENDING MD DUMAS
--- NOTE | 2018-09-03 23:50 | NUR ---
PT C/O OF ABD WINIFRED; GIVEN URINAL AT BEDSIDE, PT STATES HE IS NOT HOMELESS, HE LIVES IN [place] AND [place].
[2018-09-03] MEDS ORDERED: HYDROCODONE/APAP 10/325MG 1 EA TABLET ONE (23:57)
[2018-09-03] MEDS ORDERED: ONDANSETRON 4 MG TAB.RAPDIS ONE (23:57)
[2018-09-04] MEDS ORDERED: HYDROCODONE/APAP 10/325MG 1 EA TABLET PO ONE
[2018-09-04] MEDS ORDERED: ONDANSETRON 4 MG TAB.RAPDIS SL ONE
[2018-09-04 00:30] LABS: BASOPHILS # (AUTO) 0.1 /CMM (0.0-0.2); BASOPHILS % (AUTO) 1.3 % (0.0-2.0); HEMATOCRIT 40 % (39-51); HEMOGLOBIN 13.3 g/dL (13.5-17.5); LYMPHOCYTES % (AUTO) 46.4 % (20.0-44.0); MEAN CORPUSCULAR HGB CONC 33 g/dl (31.0-36.0); MEAN CORPUSCULAR VOLUME 94 fL (80-96); MONOCYTES # (AUTO) 0.3 /CMM (0.1-1.30); MONOCYTES % (AUTO) 5.8 % (2.0-12.0); NEUTROPHILS % (AUTO) 45.5 % (43.0-81.0); PLATELET COUNT (AUTO) 238 /CMM (150-450); RED BLOOD CELL COUNT(AUTO) 4.25 MIL/uL (4.5-6.0); WHITE BLOOD COUNT (AUTO) 4.4 K/uL (4.3-11.0)
[2018-09-04 00:36] LABS: CALCIUM, SERUM 8.6 mg/dL (8.5-10.1); CREATININE 0.8 mg/dL (0.6-1.3); POTASSIUM 3.5 mmol/L (3.5-5.1)
[2018-09-04 00:42] LABS: BILIRUBIN,DIRECT 0.1 mg/dL (0.0-0.2); BILIRUBIN,TOTAL 0.3 mg/dL (0.2-1.0); TOTAL PROTEIN, SERUM 7.3 g/dL (6.4-8.2)
--- NOTE | 2018-09-04 02:25 | NUR ---
RECEIVED REPORT FROM MELCHOR TAVERAS FOR CONTINUITY OF CARE. PT APPEARS COMFORTABLE. NO ACUTE DISTRESS NOTED. PENDING CT ABD.
--- NOTE | 2018-09-04 02:53 | NUR ---
ATTEMPTED TO CALL [facility] 3X FOR CT RESULTS. NO ANSWER.
--- NOTE | 2018-09-04 04:42 | NUR ---
Patient discharged to home in stable condition. Written and verbal after care instructions given. Patient verbalizes understanding of instruction. Pt ambulatory with steady gait. pt offered homeless resources, however pt denies being homeless and states " i have a home in [place]"
[2018-09-04 04:47] VITALS: BP 116/87
== END 2018-09-04 04:48 | disposition home or self-care (01) ==
LOC: ER 23:36
DX: G89.29 Other chronic pain (principal); R10.9 Unspecified abdominal pain; F20.9 Schizophrenia, unspecified; I10 Essential (primary) hypertension; F31.9 Bipolar disorder, unspecified; Z86.19 Personal history of other infectious and parasitic diseases; Z88.8 Allergy status to other drugs, medicaments and biological substances; Z79.899 Other long term (current) drug therapy
CPT/HCPCS: 36415; 74176; 80048; 80076; 83690; 85025; 99284; A4606; Q0162

== ENCOUNTER 2018-10-30 22:05 | Emergency (ER) | payer OTHER ==
[~2018-10-30] VITALS: Ht 177.8 cm; Wt 79.4 kg
--- NOTE | 2018-10-30 22:15 | NUR ---
PT BIB RA WITH A C/O ETOH AND SI WITH A PLAN TO RUN INTO TRAFFIC. PT STATED THAT HE WAS DEPRESSED. PT IS ON THE MONITOR AND CONTINUOUS PULSE OX. PT REC'D WARM BLANKETS. WILL CONTINUE TO MONITOR THE PT.
--- NOTE | 2018-10-30 22:15 | NUR ---
PT IS NOT ABLE TO GIVE A URINE SAMPLE AT THIS TIME. URINAL IS AT THE BEDSIDE.
--- NOTE | 2018-10-30 22:37 | NUR ---
PT WAS SATUARATING AT 89% ON RA WHILE SLEEPING. PT WAS PLACED ON 2L O2 VIA NC. PT IS NOW SATURATING AT 97%.
[2018-10-30 22:50] LABS: BASOPHILS # (AUTO) 0.2 /CMM (0.0-0.2); BASOPHILS % (AUTO) 1.9 % (0.0-2.0); HEMATOCRIT 42 % (39-51); LYMPHOCYTES # (AUTO) 2.1 /CMM (0.8-4.8); LYMPHOCYTES % (AUTO) 26.9 % (20.0-44.0); MEAN CORPUSCULAR HGB CONC 34 g/dl (31.0-36.0); MEAN CORPUSCULAR VOLUME 95 fL (80-96); MONOCYTES # (AUTO) 0.7 /CMM (0.1-1.30); NEUTROPHILS # (AUTO) 4.8 /CMM (1.8-8.9); NEUTROPHILS % (AUTO) 61.2 % (43.0-81.0); PLATELET COUNT (AUTO) 329 /CMM (150-450); RED BLOOD CELL COUNT(AUTO) 4.42 MIL/uL (4.5-6.0); WHITE BLOOD COUNT (AUTO) 7.9 K/uL (4.3-11.0)
--- NOTE | 2018-10-30 22:50 | NUR ---
EGG PACKER AT BEDSIDE FOR BLOOD DRAW. PT IS STILL NOT ABLE TO GIVE A URINE SAMPLE.
[2018-10-30 22:57] LABS: CALCIUM, SERUM 8.5 mg/dL (8.5-10.1); CREATININE 1.1 mg/dL (0.6-1.3); MAGNESIUM 2.2 mg/dL (1.8-2.4); POTASSIUM 3.2 mmol/L (3.5-5.1)
[2018-10-30 23:12] LABS: ALBUMIN 3.9 g/dL (3.4-5.0); BILIRUBIN,DIRECT 0.1 mg/dL (0.0-0.2); BILIRUBIN,TOTAL 0.4 mg/dL (0.2-1.0); SALICYLATE 2.9 mg/dL (2.8-20.0); TOTAL PROTEIN, SERUM 7.8 g/dL (6.4-8.2)
--- NOTE | 2018-10-30 23:38 | NUR ---
OBTAINED URINE BY IN & OUT CATH. SAMPLE SENT TO LAB.
[2018-10-30 23:46] LABS: APPEARANCE,URINE Clear (CLEAR); BILIRUBIN,URINE Negative (NEGATIVE); BLOOD, URINE Negative Ery/uL (NEGATIVE); COLOR,URINE Yellow (YELLOW); KETONES,URINE Negative (NEGATIVE); LEUKOCYTE ESTERASE ,URINE Negative (NEGATIVE); NITRITE, URINE Negative (NEGATIVE); PH,URINE 5.5 (5.0-8.0); PROTEIN,URINE Trace mg/dl (NEGATIVE); UGLUCOSE Negative (NEGATIVE); UROBILINOGEN,URINE 0.2 EU/dL (0.2)
[2018-10-31] MEDS ORDERED: POTASSIUM CHLORIDE 20 MEQ TAB.PRT.SR PO ONE ×2 (01:30→03:28)
[2018-10-31 04:34] LABS: BACTERIA,URINE Few /HPF (None Seen); SQUAMOUS EPITHELIAL CELL,UR Rare /HPF (None Seen)
[2018-10-31] MEDS ORDERED: ACETAMINOPHEN 325 MG TABLET PO ONE (10:00)
--- NOTE | 2018-10-31 12:52 | NUR ---
called transport [phone] eta is 1430 per margaux. trip number is [id number].
[2018-10-31] MEDS ORDERED: FOLIC ACID 1 MG TABLET ONE (12:53)
[2018-10-31] MEDS ORDERED: ACETAMINOPHEN 325 MG TABLET ONE (12:53)
[2018-10-31] MEDS ORDERED: ONDANSETRON 4 MG TAB.RAPDIS ONE (12:54)
[2018-10-31] MEDS ORDERED: THIAMINE HCL 100 MG TABLET ONE (12:54)
[2018-10-31] MEDS ORDERED: LORAZEPAM INJ 2 MG/ML VIAL ONE (12:54)
[2018-10-31] MEDS ORDERED: FOLIC ACID 1 MG TABLET PO ONE (13:00)
[2018-10-31] MEDS ORDERED: LORAZEPAM INJ 2 MG/ML VIAL IM ONE (13:00)
[2018-10-31] MEDS ORDERED: THIAMINE HCL 100 MG TABLET PO ONE (13:00)
[2018-10-31] MEDS ORDERED: ONDANSETRON 4 MG TAB.RAPDIS SL ONE (13:00)
[2018-10-31 17:16] VITALS: BP 101/56
== END 2018-10-31 17:17 | disposition home or self-care (01) ==
LOC: ER 22:09
DX: R45.851 Suicidal ideations (principal); F10.10 Alcohol abuse, uncomplicated; E87.6 Hypokalemia; G89.29 Other chronic pain; R10.84 Generalized abdominal pain; I10 Essential (primary) hypertension; Z88.8 Allergy status to other drugs, medicaments and biological substances; Z79.899 Other long term (current) drug therapy; Y90.8 Blood alcohol level of 240 mg/100 ml or more
CPT/HCPCS: 36415 ×2; 80048; 80076; 80305; 80307 ×2; 80329; 81001; 83690; 83735; 85025; 96372; 99284; G0480; J2060; Q0162; 81000-TC

== ENCOUNTER 2019-02-25 21:01 | Emergency (ER) | payer OTHER ==
[~2019-02-25] VITALS: Ht 190.5 cm; Wt 93.9 kg
--- NOTE | 2019-02-25 21:06 | NUR ---
"PT [id number] PER EMS, PT DRINKING ALL DAY, PT STATES HAVING ABD PAIN NOW, PT HAS HX OF PANCREATITIS. " PT TO BED 15, PT ON MONITOR, VSS, NAD NOTED, PENDING MD DUMAS
[2019-02-25] MEDS ORDERED: ONDANSETRON HCL/PF 4 MG/2 ML VIAL IVP ONE (21:30)
[2019-02-25] MEDS ORDERED: IV NS 0.9% 1,000 ML BAG IV ONE (21:30)
[2019-02-25] MEDS ORDERED: ONDANSETRON HCL/PF 4 MG/2 ML VIAL ONE (21:33)
[2019-02-25 21:36] LABS: BASOPHILS # (AUTO) 0.1 /CMM (0.0-0.2); BASOPHILS % (AUTO) 1.5 % (0.0-2.0); EOSINOPHILS % (AUTO) 1.2 % (0.0-6.0); HEMATOCRIT 38 % (39-51); HEMOGLOBIN 12.6 g/dL (13.5-17.5); LYMPHOCYTES # (AUTO) 1.9 /CMM (0.8-4.8); LYMPHOCYTES % (AUTO) 55.9 % (20.0-44.0); MEAN CORPUSCULAR HGB CONC 33 g/dl (31.0-36.0); MEAN CORPUSCULAR VOLUME 97 fL (80-96); MONOCYTES # (AUTO) 0.4 /CMM (0.1-1.30); MONOCYTES % (AUTO) 11.9 % (2.0-12.0); NEUTROPHILS % (AUTO) 29.5 % (43.0-81.0); PLATELET COUNT (AUTO) 248 /CMM (150-450); RED BLOOD CELL COUNT(AUTO) 3.92 MIL/uL (4.5-6.0); WHITE BLOOD COUNT (AUTO) 3.4 K/uL (4.3-11.0)
[2019-02-25 21:44] LABS: CALCIUM, SERUM 8.9 mg/dL (8.5-10.1); CREATININE 0.8 mg/dL (0.6-1.3); POTASSIUM 3.4 mmol/L (3.5-5.1)
[2019-02-25 21:50] LABS: ALBUMIN 3.9 g/dL (3.4-5.0); BILIRUBIN,DIRECT 0.1 mg/dL (0.0-0.2); BILIRUBIN,TOTAL 0.3 mg/dL (0.2-1.0); TOTAL PROTEIN, SERUM 7.4 g/dL (6.4-8.2)
--- NOTE | 2019-02-25 22:11 | NUR ---
PT UNABLE TO PROVIDE URINE SAMPLE AT THIS TIME, AWARE
--- NOTE | 2019-02-26 02:15 | NUR ---
Patient is resting comfortably in bed with eyes closed. Easily aroused. VSS
--- NOTE | 2019-02-26 03:16 | NUR ---
Patient is resting comfortably in bed with eyes closed. Easily aroused. VSS
--- NOTE | 2019-02-26 06:05 | NUR ---
Patient is resting comfortably in bed with eyes closed. Easily aroused. VSS
--- NOTE | 2019-02-26 06:32 | NUR ---
PT AWAKE. ATTEMPTED TO AMBULATE BUT STATES HE FEELS DIZZY. ASSISTED PT BACK TO BED. WILL CONTINUE TO MONITOR
--- NOTE | 2019-02-26 07:35 | NUR ---
ORDERED BREAKFAST TRAY
--- NOTE | 2019-02-26 08:49 | NUR ---
PT STATED HE'S SUICIDAL AND PLAN TO RUN THROUGH TRAFFIC.
[2019-02-26] MEDS ORDERED: ACETAMINOPHEN ES 500 MG TABLET ONE (09:02)
[2019-02-26] MEDS ORDERED: ONDANSETRON HCL/PF 4 MG/2 ML VIAL ONE ×2 (09:02→12:04)
--- NOTE | 2019-02-26 09:05 | NUR ---
ZOFRAN 4MG IVP GIVEN VERBAL ORDERED BY
--- NOTE | 2019-02-26 09:27 | NUR ---
JOSH WEST AT BEDSIDE FOR EVAL.
[2019-02-26] MEDS ORDERED: ONDANSETRON HCL/PF - ER 4 MG/2 ML VIAL IV ONE ×2 (09:30→12:00)
[2019-02-26] MEDS ORDERED: ACETAMINOPHEN ES 500 MG TABLET PO ONE (09:30)
--- NOTE | 2019-02-26 09:30 | NUR ---
ER PHLEB AT BEDSIDE FOR BLOOD DRAWNED.
[2019-02-26] MEDS ORDERED: KETOROLAC TROMETHAMINE 15 MG/ML VIAL ONE (10:05)
[2019-02-26] MEDS ORDERED: KETOROLAC TROMETHAMINE INJ 30 MG/ML VIAL IV ONE (10:30)
--- NOTE | 2019-02-26 11:05 | NUR ---
Social service consult requested by Dr. Purvis for homelessness and suicidal ideations with a plan. Pt. is a 48 year old male who brought in by ambulance from street for evaluation of diffuse abdominal pain for 1 day. The patient describes the abdominal pain as mild-moderate, constant, crampy, and non-radiating. SW met with pt. bedside. Pt. is alert and oriented x 4. Pt. appears uncomfortable and in pain. Pt. is cooperative with SW. When asked if he is homeless, pt. stated, " not really." States he has been staying with relatives. Pt. admits to heavy alcohol consumption daily. When asked how much he drinks daily, pt. stated, " it depends." Pt. denies drug use. Pt. smokes cigarettes daily. When asked how many per day, pt. states, " it depends, who counts." Pt. states he is suicidal with a plan to run into traffic. Pt. is requesting voluntary psychiatric admission to [facility]. BRETT faxed clinicals to intake at .
--- NOTE | 2019-02-26 11:22 | NUR ---
BRETT received a call from Blanca at [facility] informing SW that they will need another alcohol blood drawl level since pt's was over a 100. Blanca also wanted to confirm if pt. is willing to come to [facility]. BRETT informed her she will confirm with the pt. and follow up.
[2019-02-26] MEDS ORDERED: METOCLOPRAMIDE HCL 10 MG/2 ML VIAL IV ONE (13:00)
[2019-02-26] MEDS ORDERED: METOCLOPRAMIDE HCL 10 MG/2 ML VIAL ONE (13:09)
--- NOTE | 2019-02-26 14:24 | NUR ---
BRETT faxed updated alcohol level report to intake at [facility] .
--- NOTE | 2019-02-26 14:25 | NUR ---
PT ACCEPTED TO [facility]. PULIDO [phone] EXT 240 [facility]; ETA 2HRS
--- NOTE | 2019-02-26 14:39 | NUR ---
TRANSPORTATION INFO: [facility] ETA: 1 HOUR (7131) GOING TO [facility]
[2019-02-26 14:49] VITALS: BP 148/72
--- NOTE | 2019-02-26 14:49 | NUR ---
REPORT GIVEN TO MELCHOR CIFUENTES FOR CAMILO.
--- NOTE | 2019-02-26 15:53 | NUR ---
PT TRANSPORTED TO [facility], PT IN STABLE CONDITION, VSS, NAD NOTED.
== END 2019-02-26 15:54 ==
LOC: ER 21:01
DX: F10.129 Alcohol abuse with intoxication, unspecified (principal); E87.0 Hyperosmolality and hypernatremia; I10 Essential (primary) hypertension; F20.9 Schizophrenia, unspecified; F31.9 Bipolar disorder, unspecified; F17.200 Nicotine dependence, unspecified, uncomplicated; Z88.8 Allergy status to other drugs, medicaments and biological substances; Z79.899 Other long term (current) drug therapy; Y90.9 Presence of alcohol in blood, level not specified
CPT/HCPCS: 36415 ×2; 80048; 80076; 80307 ×3; 83690; 85025; 96374; 96375; 96376; 99285; J1885; J2405 ×5; J2765; J7030 ×3; G0480

== ENCOUNTER 2019-02-26 16:42 | Emergency (ER) | payer OTHER ==
[~2019-02-26] VITALS: Ht 182.9 cm; Wt 92.5 kg
--- NOTE | 2019-02-26 16:47 | NUR ---
PT NEETU Sent back by [facility] for high BP; the patient was medically cleared and also cleared by PET team , pt is aaox3, not in respiratory distress, hooked to monitor, kept rested and comfortable, will continue to monitor.
--- NOTE | 2019-02-26 16:58 | NUR ---
SEEN AND EXAMINED BY .
[2019-02-26] MEDS ORDERED: LORAZEPAM 1 MG TABLET ONE (17:00)
[2019-02-26] MEDS ORDERED: CLONIDINE HCL 0.1 MG TABLET ONE ×2 (17:00→18:42)
[2019-02-26] MEDS ORDERED: LORAZEPAM 1 MG TABLET PO ONE (17:00)
[2019-02-26] MEDS ORDERED: CLONIDINE HCL 0.1 MG TABLET PO ONE ×2 (17:00→18:30)
--- NOTE | 2019-02-26 18:18 | NUR ---
SPOKED TO [facility], NEED TO RESUBMIT ER MD'S MEDICAL CLEARANCE FOR PT.
[2019-02-26] MEDS ORDERED: AMLODIPINE BESYLATE 5 MG TABLET PO ONE (21:00)
[2019-02-26] MEDS ORDERED: AMLODIPINE BESYLATE 5 MG TABLET ONE (21:07)
--- NOTE | 2019-02-26 22:28 | NUR ---
PT'S BP IMPROVED, FAXED OVER INFORMATION TO [facility]
--- NOTE | 2019-02-26 22:33 | NUR ---
PER TERESITA FROM [facility] INTAKE, PT MAY RETURN TO FACILITY
--- NOTE | 2019-02-26 22:49 | NUR ---
TRANSPORTATION TO [facility]: [facility]. ETA 45MIN-1HR
[2019-02-26 23:25] VITALS: BP 163/107
--- NOTE | 2019-02-26 23:25 | NUR ---
REPORT GIVEN TO SANTO DOLAN AT [facility]. AWARE OF TRENDING BLOOD PRESSURE. [facility] ALSO AWARE AND ACCEPTED PT.
== END 2019-02-27 00:59 | disposition short-term general hospital (02) ==
LOC: ER 16:43
DX: I10 Essential (primary) hypertension (principal); R45.851 Suicidal ideations; F20.9 Schizophrenia, unspecified; F31.9 Bipolar disorder, unspecified; F10.10 Alcohol abuse, uncomplicated; F17.200 Nicotine dependence, unspecified, uncomplicated; Y90.9 Presence of alcohol in blood, level not specified

== ENCOUNTER 2019-07-21 21:31 | Emergency (ER) | payer OTHER ==
[~2019-07-21] VITALS: Ht 185.4 cm; Wt 95.3 kg
--- NOTE | 2019-07-21 22:30 | NUR ---
PT IN BED SLEEPING. WOKE THE PT UP FOR ASSESSMENT AND ASKED WHAT LEO HIM TO THE HOSPITAL. PT W/ C/O "ABD PAIN FOR A MINUTE". DENIED N/V/D . PT WAS PLACED ON A MONITOR. VSS. WILL CONT TO MONITOR.
[2019-07-21] MEDS ORDERED: KETOROLAC TROMETHAMINE INJ 30 MG/ML VIAL ONE (22:47)
[2019-07-21] MEDS ORDERED: MORPHINE SULFATE INJ 4 MG/ML DISP.SYRIN ONE (22:47)
[2019-07-21] MEDS ORDERED: KETOROLAC TROMETHAMINE INJ 60 MG/2 ML VIAL IM ONE (22:47)
[2019-07-21] MEDS ORDERED: ONDANSETRON HCL/PF 4 MG/2 ML VIAL ONE (22:47)
[2019-07-21] MEDS ORDERED: KETOROLAC TROMETHAMINE INJ 30 MG/ML VIAL IV ONE (23:00)
[2019-07-21] MEDS ORDERED: ONDANSETRON HCL/PF 4 MG/2 ML VIAL IVP ONE (23:00)
[2019-07-21] MEDS ORDERED: IV NS 0.9% 1,000 ML BAG IV ONE (23:00)
[2019-07-21] MEDS ORDERED: MORPHINE SULFATE INJ 2 MG/ML DISP.SYRIN IV ONE (23:00)
[2019-07-21 23:04] LABS: BASOPHILS % (AUTO) 1.4 % (0.0-2.0); HEMATOCRIT 38 % (39-51); HEMOGLOBIN 12.3 g/dL (13.5-17.5); LYMPHOCYTES # (AUTO) 1.2 /CMM (0.8-4.8); LYMPHOCYTES % (AUTO) 41.2 % (20.0-44.0); MEAN CORPUSCULAR HGB CONC 32 g/dl (31.0-36.0); MEAN CORPUSCULAR VOLUME 95 fL (80-96); MONOCYTES # (AUTO) 0.4 /CMM (0.1-1.30); MONOCYTES % (AUTO) 13.6 % (2.0-12.0); NEUTROPHILS # (AUTO) 1.2 /CMM (1.8-8.9); NEUTROPHILS % (AUTO) 42.8 % (43.0-81.0); PLATELET COUNT (AUTO) 201 /CMM (150-450); RED BLOOD CELL COUNT(AUTO) 4.01 MIL/uL (4.5-6.0); WHITE BLOOD COUNT (AUTO) 2.9 K/uL (4.3-11.0)
--- NOTE | 2019-07-21 23:05 | NUR ---
unable to insert an IV line despite mulltiple try. pt currently sleeping in bed , snoring w/ no s/s of pain. PA made aware . per her to D/C all orders for meds.
[2019-07-21 23:11] LABS: CALCIUM, SERUM 8.3 mg/dL (8.5-10.1); CREATININE 0.8 mg/dL (0.6-1.3); POTASSIUM 3.4 mmol/L (3.5-5.1)
[2019-07-21 23:17] LABS: ALBUMIN 3.6 g/dL (3.4-5.0); BILIRUBIN,DIRECT 0.1 mg/dL (0.0-0.2); BILIRUBIN,TOTAL 0.4 mg/dL (0.2-1.0); TOTAL PROTEIN, SERUM 7.3 g/dL (6.4-8.2)
[2019-07-21 23:47] LABS: EOSINOPHILS % (MANUAL) 2 % (0-4); LYMPHOCYTES % (MANUAL) 44 % (16-48); MONOCYTES % (MANUAL) 8 % (0-11.0); NEUTROPHILS % (MANUAL) 46 (42-76)
[2019-07-22 05:23] VITALS: BP 138/84
--- NOTE | 2019-07-22 05:43 | NUR ---
Patient given written and verbal discharge instructions. Patient verbalizes understanding of instructions. Patient is ambulatory with steady gait. Refuses offer of [facility] placement. Patient given snacks to go. will arrange his own transpo. had proper clothing on upon discharge.
== END 2019-07-22 05:46 | disposition home or self-care (01) ==
LOC: ER 21:35
DX: R10.9 Unspecified abdominal pain (principal); G89.29 Other chronic pain; F10.129 Alcohol abuse with intoxication, unspecified; F17.210 Nicotine dependence, cigarettes, uncomplicated; I10 Essential (primary) hypertension; F20.9 Schizophrenia, unspecified; F31.9 Bipolar disorder, unspecified; Y90.9 Presence of alcohol in blood, level not specified; Z59.0 Homelessness; Z79.899 Other long term (current) drug therapy; Z88.8 Allergy status to other drugs, medicaments and biological substances
CPT/HCPCS: 36415; 80048; 80076; 83690; 85025; 99283; J7030; J1885; J2270; J2405

== ENCOUNTER 2019-08-21 23:21 | Emergency (ER) | payer OTHER ==
[~2019-08-21] VITALS: Ht 185.4 cm; Wt 102.1 kg
[2019-08-21 23:21] VITALS: BP 168/96
[2019-08-22 00:12] LABS: BASOPHILS # (AUTO) 0.1 /CMM (0.0-0.2); BASOPHILS % (AUTO) 1.3 % (0.0-2.0); EOSINOPHILS % (AUTO) 1.1 % (0.0-6.0); HEMATOCRIT 40 % (39-51); HEMOGLOBIN 13.2 g/dL (13.5-17.5); LYMPHOCYTES # (AUTO) 2.1 /CMM (0.8-4.8); LYMPHOCYTES % (AUTO) 30.9 % (20.0-44.0); MEAN CORPUSCULAR HGB CONC 33 g/dl (31.0-36.0); MEAN CORPUSCULAR VOLUME 97 fL (80-96); MONOCYTES # (AUTO) 0.3 /CMM (0.1-1.30); MONOCYTES % (AUTO) 4.9 % (2.0-12.0); NEUTROPHILS # (AUTO) 4.1 /CMM (1.8-8.9); NEUTROPHILS % (AUTO) 61.8 % (43.0-81.0); PLATELET COUNT (AUTO) 227 /CMM (150-450); RED BLOOD CELL COUNT(AUTO) 4.16 MIL/uL (4.5-6.0); WHITE BLOOD COUNT (AUTO) 6.7 K/uL (4.3-11.0)
[2019-08-22 00:24] LABS: CALCIUM, SERUM 8.7 mg/dL (8.5-10.1); CREATININE 0.7 mg/dL (0.6-1.3); POTASSIUM 3.4 mmol/L (3.5-5.1)
[2019-08-22 00:30] LABS: BILIRUBIN,TOTAL 0.2 mg/dL (0.2-1.0); TOTAL PROTEIN, SERUM 7.8 g/dL (6.4-8.2)
--- NOTE | 2019-08-22 01:04 | NUR ---
Patient discharged to home in stable condition. Written and verbal after care instructions given. Patient verbalizes understanding of instruction.
== END 2019-08-22 01:25 | disposition home or self-care (01) ==
LOC: ER 23:22
DX: F10.20 Alcohol dependence, uncomplicated (principal); I10 Essential (primary) hypertension; Z76.5 Malingerer [conscious simulation]; Z79.899 Other long term (current) drug therapy; Z88.8 Allergy status to other drugs, medicaments and biological substances; Z59.0 Homelessness
CPT/HCPCS: 36415; 80053-TC; 83690-TC; 85025-TC

== ENCOUNTER 2019-08-22 03:49 | Emergency (ER) | payer OTHER ==
[~2019-08-22] VITALS: Ht 185.4 cm; Wt 102.1 kg
[2019-08-22 03:49] VITALS: BP 153/92
--- NOTE | 2019-08-22 03:56 | NUR ---
PT NOT IN ROOM FOR MD DUMAS. PT LEFT WITHOUT BEING SEEN BY ER MD. PT ELOPED
== END 2019-08-22 04:00 | disposition left against medical advice (07) ==
LOC: ER 03:53
DX: R10.9 Unspecified abdominal pain (principal); Z53.21 Procedure and treatment not carried out due to patient leaving prior to being seen by health care provider; Z59.0 Homelessness

== ENCOUNTER 2019-08-23 22:19 | Emergency (ER) | payer OTHER ==
[~2019-08-23] VITALS: Ht 175.3 cm; Wt 81.6 kg
--- NOTE | 2019-08-23 22:50 | NUR ---
PATIENT CAME TO ER BED 15 BIB RA C/O ETOH. PATIENT WAS FOUND AT BUS STATION FOR DRINKING ALCOHOL. PT STATES "I WISH I HAD SOME REAL FRIENDS". AAOX2. NO SOB. BREATHING EVENLY AND UNLABORED. VSS. SITTER AT BEDSIDE.
--- NOTE | 2019-08-24 00:04 | NUR ---
Patient is resting comfortably in bed with eyes closed. Easily aroused. No s/o or c/o pain or discomfort at this time. will cont to monitor
--- NOTE | 2019-08-24 01:56 | NUR ---
PT ASLEEP, NO ACUTE DISTRESS NOTED, RESP EVEN AND UNLABORED. CALL LIGHT WITHIN REACH. WILL CONTINUE TO MONITOR PT CLOSELY.
--- NOTE | 2019-08-24 03:23 | NUR ---
PT ASLEEP, NO ACUTE DISTRESS NOTED, RESP EVEN AND UNLABORED. CALL LIGHT WITHIN REACH. WILL CONTINUE TO MONITOR PT CLOSELY.
[2019-08-24 04:21] VITALS: BP 127/64
--- NOTE | 2019-08-24 04:26 | NUR ---
PT AAOX4 NO ACUTE DISTRESS NOTED, RESP EVEN AND UNLABORED. PT AMBULAORY WITH STEADY GAIT NOTED TO THE BATHROOM.
--- NOTE | 2019-08-24 04:55 | NUR ---
PT VERBALLY ABUSIVE TO ER STAFF, DEMANDING FOR FOOD AND WATER. SANDWICH AND WATER PROVIDED TO PT, PT REFUSE TO SIGN ACI, PT WALKED OUT OF ER.
== END 2019-08-24 05:03 | disposition home or self-care (01) ==
LOC: ER 22:22
DX: F10.129 Alcohol abuse with intoxication, unspecified (principal); I10 Essential (primary) hypertension; F20.9 Schizophrenia, unspecified; F31.9 Bipolar disorder, unspecified; F17.200 Nicotine dependence, unspecified, uncomplicated; Z88.8 Allergy status to other drugs, medicaments and biological substances; Z79.899 Other long term (current) drug therapy; Y90.9 Presence of alcohol in blood, level not specified
CPT/HCPCS: 82962-TC

== ENCOUNTER 2019-11-11 08:45 | Emergency (ER) | payer OTHER ==
[~2019-11-11] VITALS: Ht 182.9 cm; Wt 95.3 kg
--- NOTE | 2019-11-11 08:50 | NUR ---
[id number], from street, c/o abd pain and nausea vomiting, diarrhea since 3am. Patient a/ox4, breathing even and unlabored, no sob noted. Kept comfortable. Needs attended. Patient stated he's suicidal plan is to run into traffic. Sitter at bedside. Security called for wanding.
[2019-11-11] MEDS ORDERED: ACETAMINOPHEN ES 500 MG TABLET PO ONE (09:00)
[2019-11-11] MEDS ORDERED: ACETAMINOPHEN ES 500 MG TABLET ONE (09:03)
[2019-11-11 09:44] LABS: BASOPHILS % (AUTO) 0.8 % (0.0-2.0); EOSINOPHILS % (AUTO) 1.3 % (0.0-6.0); HEMATOCRIT 43 % (39-51); HEMOGLOBIN 14.2 g/dL (13.5-17.5); LYMPHOCYTES # (AUTO) 1.2 /CMM (0.8-4.8); LYMPHOCYTES % (AUTO) 19.6 % (20.0-44.0); MEAN CORPUSCULAR HGB CONC 33 g/dl (31.0-36.0); MEAN CORPUSCULAR VOLUME 95 fL (80-96); MONOCYTES # (AUTO) 0.8 /CMM (0.1-1.30); MONOCYTES % (AUTO) 13.6 % (2.0-12.0); NEUTROPHILS # (AUTO) 3.8 /CMM (1.8-8.9); NEUTROPHILS % (AUTO) 64.7 % (43.0-81.0); PLATELET COUNT (AUTO) 271 /CMM (150-450); RED BLOOD CELL COUNT(AUTO) 4.55 MIL/uL (4.5-6.0); WHITE BLOOD COUNT (AUTO) 5.9 K/uL (4.3-11.0)
--- NOTE | 2019-11-11 09:45 | NUR ---
BLOOD DRAWN AND SENT TO LAB.
[2019-11-11 09:51] LABS: CREATININE 0.8 mg/dL (0.6-1.3); POTASSIUM 3.6 mmol/L (3.5-5.1)
[2019-11-11 10:05] LABS: BILIRUBIN,DIRECT 0.1 mg/dL (0.0-0.2); BILIRUBIN,TOTAL 0.5 mg/dL (0.2-1.0); CALCIUM, SERUM 8.8 mg/dL (8.5-10.1); TOTAL PROTEIN, SERUM 7.9 g/dL (6.4-8.2)
[2019-11-11 10:05] LABS: APPEARANCE,URINE Clear (CLEAR); BILIRUBIN,URINE Negative (NEGATIVE); BLOOD, URINE Negative Ery/uL (NEGATIVE); COLOR,URINE Yellow (YELLOW); KETONES,URINE Negative (NEGATIVE); LEUKOCYTE ESTERASE ,URINE Negative (NEGATIVE); NITRITE, URINE Negative (NEGATIVE); PH,URINE 7.5 (5.0-8.0); PROTEIN,URINE Negative (NEGATIVE); UGLUCOSE Negative (NEGATIVE); UROBILINOGEN,URINE 0.2 EU/dL (0.2)
[2019-11-11 10:06] LABS: SALICYLATE 2.5 mg/dL (2.8-20.0)
--- NOTE | 2019-11-11 10:45 | NUR ---
patient resting no distress noted.
[2019-11-11] MEDS ORDERED: ONDANSETRON HCL/PF 4 MG/2 ML VIAL ONE (11:53)
[2019-11-11] MEDS ORDERED: LORAZEPAM INJ 2 MG/ML VIAL ONE (11:53)
[2019-11-11] MEDS ORDERED: ONDANSETRON HCL/PF 4 MG/2 ML VIAL IM ONE (12:00)
[2019-11-11] MEDS ORDERED: LORAZEPAM INJ 2 MG/ML VIAL IM ONE (12:00)
--- NOTE | 2019-11-11 14:01 | NUR ---
FOLLOWED UP WITH POONAM AT [facility] CHUCK MARCOS FOR STATUS OF PT ACCEPTANCE. STILL WAITING FOR NURSING SUP AT [facility] TO ACCEPT PT. WILL CALL BACK ONE INFO IS REVIEWED.
--- NOTE | 2019-11-11 15:21 | NUR ---
BRETT NOTE: SW spoke with RN who states pt is severely intoxicated and waiting for ERYN to lower to transfer pt to [facility]. A referral was faxed and RN is waiting for approval.
--- NOTE | 2019-11-11 15:50 | NUR ---
DISREGARD BLOOD SUGAR RESULT, WRONG PATIENT. AWARE.
--- NOTE | 2019-11-11 16:13 | NUR ---
DR. KING/ DR. THAKUR ACCEPTING. NUMBER FOR REPORT [phone]. BED ASSIGNMENT WILL BE PROVIDED UPON NURSE TO NURSE REPORT.
--- NOTE | 2019-11-11 17:04 | NUR ---
CALLED NUMBER FOR REPORT [phone], NO ANSWER, LEFT VM.
--- NOTE | 2019-11-11 17:26 | NUR ---
REPORT GIVEN TO TORY ROCHE POWER SAW MECHANIC OF [facility]
--- NOTE | 2019-11-11 17:34 | NUR ---
[facility]BUL[facility] ETA 25 MINUTES. RESERVATION NUMBER [id number].
--- NOTE | 2019-11-11 17:39 | NUR ---
BS 156, MADE AWARE
--- NOTE | 2019-11-11 18:32 | NUR ---
PATIENT TRANSFERRED TO [facility]. PATIENT A/OX4, BREATHING EVEN AND UNLABORED, NO SOB NOTED. NO DISTRESS NOTED.
[2019-11-11 18:33] VITALS: BP 147/81
== END 2019-11-11 18:36 ==
LOC: ER 08:49
DX: G89.29 Other chronic pain (principal); F10.10 Alcohol abuse, uncomplicated; F32.9 Major depressive disorder, single episode, unspecified; R45.851 Suicidal ideations; I10 Essential (primary) hypertension; F17.200 Nicotine dependence, unspecified, uncomplicated; Z88.8 Allergy status to other drugs, medicaments and biological substances; Z79.899 Other long term (current) drug therapy; Y90.1 Blood alcohol level of 20-39 mg/100 ml
CPT/HCPCS: 36415; 80048; 80076; 80305; 80307; 80329; 81001; 82962; 85025; 96372 ×2; 99285; G0480; J2060; J2405; 81000-TC

== ENCOUNTER 2020-01-21 19:18 | Emergency (ER) | payer OTHER ==
[~2020-01-21] VITALS: Ht 182.9 cm; Wt 95.3 kg
--- NOTE | 2020-01-21 19:35 | NUR ---
PT BIBA FROM [place]RE[place] FOR ETOH AND ABD PAIN. PT AAOX3, VSS, RESPIRATIONS EVEN AND UNLABORED ON RA W/ NAD NOTED. PT CONNECTED TO THE RADIOLOGICAL ENGINEER AND POX. AWAITING FOR MD DUMAS
[2020-01-21] MEDS ORDERED: IBUPROFEN 600 MG TABLET PO ONE ×2 (19:54→20:00)
[2020-01-21] MEDS ORDERED: ONDANSETRON HCL/PF 4 MG/2 ML VIAL ONE (19:54)
[2020-01-21] MEDS ORDERED: ONDANSETRON HCL/PF 4 MG/2 ML VIAL IVP ONE (20:00)
[2020-01-21] MEDS ORDERED: IV NS 0.9% 1,000 ML BAG IV ONE (20:00)
--- NOTE | 2020-01-21 20:19 | NUR ---
PATIENT IS REFUSING IV. LAURA ARROYO NOTIFIED.
[2020-01-21 20:40] LABS: APPEARANCE,URINE Clear (CLEAR); BILIRUBIN,URINE Negative (NEGATIVE); BLOOD, URINE Negative Ery/uL (NEGATIVE); COLOR,URINE Yellow (YELLOW); KETONES,URINE Negative (NEGATIVE); LEUKOCYTE ESTERASE ,URINE Negative (NEGATIVE); NITRITE, URINE Negative (NEGATIVE); PH,URINE 5.5 (5.0-8.0); PROTEIN,URINE Negative (NEGATIVE); UGLUCOSE Negative (NEGATIVE); UROBILINOGEN,URINE 0.2 EU/dL (0.2)
--- NOTE | 2020-01-21 20:50 | NUR ---
PATIENT UNABLE TO PROVIDE URINE. WILL TRY AGAIN AT A LATER TIME.
--- NOTE | 2020-01-21 20:50 | NUR ---
INSOLE PRESSER AT BEDSIDE FOR BLOOD DRAW.
--- NOTE | 2020-01-21 21:29 | NUR ---
BLOOD DRAWN BY TRIMMER HELPER AND SENT TO THE LAB.
[2020-01-21 21:33] LABS: BASOPHILS % (AUTO) 0.6 % (0.0-2.0); EOSINOPHILS % (AUTO) 1.3 % (0.0-6.0); HEMATOCRIT 40 % (39-51); LYMPHOCYTES # (AUTO) 2.1 /CMM (0.8-4.8); LYMPHOCYTES % (AUTO) 42.3 % (20.0-44.0); MEAN CORPUSCULAR HGB CONC 33 g/dl (31.0-36.0); MEAN CORPUSCULAR VOLUME 95 fL (80-96); MONOCYTES # (AUTO) 0.6 /CMM (0.1-1.30); MONOCYTES % (AUTO) 11.1 % (2.0-12.0); NEUTROPHILS # (AUTO) 2.2 /CMM (1.8-8.9); NEUTROPHILS % (AUTO) 44.7 % (43.0-81.0); PLATELET COUNT (AUTO) 283 /CMM (150-450); RED BLOOD CELL COUNT(AUTO) 4.23 MIL/uL (4.5-6.0)
[2020-01-21 21:56] LABS: CALCIUM, SERUM 8.3 mg/dL (8.5-10.1); POTASSIUM 3.5 mmol/L (3.5-5.1)
[2020-01-21 22:02] LABS: ALBUMIN 3.9 g/dL (3.4-5.0); BILIRUBIN,DIRECT 0.1 mg/dL (0.0-0.2); BILIRUBIN,TOTAL 0.2 mg/dL (0.2-1.0); TOTAL PROTEIN, SERUM 7.6 g/dL (6.4-8.2)
--- NOTE | 2020-01-21 22:53 | NUR ---
PATIENT RETURNED FROM CT.
--- NOTE | 2020-01-22 01:05 | NUR ---
PATIENT IS SLEEPING. EASILY AROUSABLE THROUGH TOUCH AND VERBAL STIMULI. BREATHING EVENLY AND UNLABORED ON ROOM AIR. GIVEN BLANKET FOR COMFORT. SITTER IS AT BEDSIDE.
--- NOTE | 2020-01-22 04:07 | NUR ---
PT RESTING COMFORTABLY IN BED. VSS. NO ACUTE DISTRESS NOTED. WILL CONTINUE TO MONITOR. SITTER AT BEDSIDE FOR SAFETY
[2020-01-22] MEDS ORDERED: ONDANSETRON 4 MG TAB.RAPDIS ONE (05:53)
--- NOTE | 2020-01-22 05:59 | NUR ---
Patient given written and verbal discharge instructions. Patient verbalizes understanding of instructions. Patient is ambulatory with steady gait. Refuses offer of alf placement. Patient given list of available shelters in surrounding area.
[2020-01-22 06:00] VITALS: BP 141/82
[2020-01-22] MEDS ORDERED: ONDANSETRON 4 MG TAB.RAPDIS SL ONE (06:00)
== END 2020-01-22 06:00 | disposition home or self-care (01) ==
LOC: ER 19:19
DX: F10.129 Alcohol abuse with intoxication, unspecified (principal); G89.29 Other chronic pain; R10.84 Generalized abdominal pain; I10 Essential (primary) hypertension; Y90.8 Blood alcohol level of 240 mg/100 ml or more; Z88.3 Allergy status to other anti-infective agents; Z79.899 Other long term (current) drug therapy
CPT/HCPCS: 36415; 74176; 80048; 80076; 80307; 81001; 83690; 85025; 99284; J2405; J7030; Q0162; 81000-TC

== ENCOUNTER 2020-01-23 16:01 | Emergency (ER) | payer OTHER ==
[~2020-01-23] VITALS: Ht 180.3 cm; Wt 74.8 kg
--- NOTE | 2020-01-23 16:01 | NUR ---
PT BIBRA FROM THE STREET C/O WEAKNESS "FEELING SICK, +ETOH. PT IS AAOX4, NOT IN RESPIRATORY DISTRESS, V/S STABLE, KEPT RESTED AND COMFORTABLE. WILL CONTINUE TO MONITOR.
--- NOTE | 2020-01-23 16:07 | NUR ---
PT SEEN AND EXAMINED BY .
--- NOTE | 2020-01-23 16:33 | NUR ---
APPRENTICE CARPENTER AT BEDSIDE
--- NOTE | 2020-01-23 16:34 | NUR ---
URINAL GIVEN BUT UNABLE TO PROVIDE URINE SPECIMEN THIS TIME.
--- NOTE | 2020-01-23 17:05 | NUR ---
Patient does not wish to proceed with medical care recommended by Dr. Cabello. Patient given information related to possible complications, up to and including , which could occur as a result of leaving the hospital at this time. Patient verbalizes understanding of risks involved due to leaving against medical advice. Patient has signed AMA form.
[2020-01-23 17:08] VITALS: BP 131/84
== END 2020-01-23 17:09 | disposition left against medical advice (07) ==
LOC: ER 16:04
DX: F10.10 Alcohol abuse, uncomplicated (principal); I10 Essential (primary) hypertension; F20.9 Schizophrenia, unspecified; F31.9 Bipolar disorder, unspecified; F17.200 Nicotine dependence, unspecified, uncomplicated; Z88.8 Allergy status to other drugs, medicaments and biological substances; Z79.899 Other long term (current) drug therapy; Y90.9 Presence of alcohol in blood, level not specified

== ENCOUNTER 2020-02-22 01:23 | Emergency (ER) | payer OTHER ==
[~2020-02-22] VITALS: Ht 175.3 cm; Wt 81.6 kg
[2020-02-22] MEDS ORDERED: ONDANSETRON HCL/PF 4 MG/2 ML VIAL ONE (01:38)
[2020-02-22] MEDS ORDERED: KETOROLAC TROMETHAMINE 15 MG/ML VIAL ONE (01:38)
--- NOTE | 2020-02-22 01:43 | NUR ---
PATIENT CAME TO ER C/O ABDOMINAL PAIN. PATIENT DOES NOT HAVE ANY SPECIFIC PAIN. PATIENT IS AAOX3. NO SOB. BREATHING EVENLY AND UNLABORED ON ROOM AIR.
[2020-02-22] MEDS ORDERED: ONDANSETRON HCL/PF 4 MG/2 ML VIAL IVP ONE (02:00)
[2020-02-22] MEDS ORDERED: IV NS 0.9% 1,000 ML BAG IV ONE (02:00)
[2020-02-22] MEDS ORDERED: KETOROLAC TROMETHAMINE INJ 30 MG/ML VIAL IV ONE (02:00)
[2020-02-22 02:21] LABS: BASOPHILS % (AUTO) 0.1 % (0.0-2.0); EOSINOPHILS % (AUTO) 0.6 % (0.0-6.0); HEMATOCRIT 39 % (39-51); HEMOGLOBIN 12.7 g/dL (13.5-17.5); LYMPHOCYTES # (AUTO) 2.2 /CMM (0.8-4.8); LYMPHOCYTES % (AUTO) 46.7 % (20.0-44.0); MEAN CORPUSCULAR HGB CONC 32 g/dl (31.0-36.0); MEAN CORPUSCULAR VOLUME 93 fL (80-96); MONOCYTES # (AUTO) 0.3 /CMM (0.1-1.30); MONOCYTES % (AUTO) 5.4 % (2.0-12.0); NEUTROPHILS # (AUTO) 2.2 /CMM (1.8-8.9); NEUTROPHILS % (AUTO) 47.2 % (43.0-81.0); PLATELET COUNT (AUTO) 278 /CMM (150-450); RED BLOOD CELL COUNT(AUTO) 4.22 MIL/uL (4.5-6.0); WHITE BLOOD COUNT (AUTO) 4.7 K/uL (4.3-11.0)
[2020-02-22 02:27] LABS: CALCIUM, SERUM 8.2 mg/dL (8.5-10.1); POTASSIUM 3.2 mmol/L (3.5-5.1)
[2020-02-22 02:33] LABS: ALBUMIN 4.1 g/dL (3.4-5.0); BILIRUBIN,DIRECT 0.2 mg/dL (0.0-0.2); BILIRUBIN,TOTAL 0.7 mg/dL (0.2-1.0); TOTAL PROTEIN, SERUM 7.8 g/dL (6.4-8.2)
--- NOTE | 2020-02-22 02:46 | NUR ---
CALLED RADILOGY REGARDING CTW
[2020-02-22] MEDS ORDERED: IOHEXOL-300 100 ML VIAL IV ONE (02:55)
--- NOTE | 2020-02-22 03:06 | NUR ---
back from ct
--- NOTE | 2020-02-22 04:43 | NUR ---
IV removed. Catheter intact and site benign. Pressure and 4x4 applied to site. No bleeding noted.
--- NOTE | 2020-02-22 04:47 | NUR ---
Patient discharged to home in stable condition. Written and verbal after care instructions given. Patient verbalizes understanding of instruction. Pt refused to sign discharge papers.
[2020-02-22 04:49] VITALS: BP 138/82
== END 2020-02-22 04:49 | disposition home or self-care (01) ==
LOC: ER 01:25
DX: R10.13 Epigastric pain (principal); I10 Essential (primary) hypertension; F20.9 Schizophrenia, unspecified; F31.9 Bipolar disorder, unspecified; F17.200 Nicotine dependence, unspecified, uncomplicated; Z88.8 Allergy status to other drugs, medicaments and biological substances; Z79.899 Other long term (current) drug therapy
CPT/HCPCS: 36415; 74177; 80048; 80076; 83690; 85025; 96361; 96374; 96375; 99285; J1885; J2405; J7030; Q9967

== ENCOUNTER 2020-03-15 11:22 | Emergency (ER) | payer OTHER ==
[~2020-03-15] VITALS: Ht 175.3 cm; Wt 81.6 kg
[2020-03-15] MEDS ORDERED: ONDANSETRON HCL/PF 4 MG/2 ML VIAL ONE (11:48)
[2020-03-15] MEDS: IV NS 0.9% 1,000 ML BAG IV ONE (12:06)
[2020-03-15] MEDS: ONDANSETRON HCL/PF 4 MG/2 ML VIAL IVP ONE (12:06)
[2020-03-15 12:12] LABS: APPEARANCE,URINE Clear (CLEAR); BILIRUBIN,URINE Negative (NEGATIVE); BLOOD, URINE Trace-intact Ery/uL (NEGATIVE); COLOR,URINE Yellow (YELLOW); KETONES,URINE 15 (NEGATIVE); LEUKOCYTE ESTERASE ,URINE Negative (NEGATIVE); NITRITE, URINE Negative (NEGATIVE); PROTEIN,URINE 30 mg/dl (NEGATIVE); UGLUCOSE Negative (NEGATIVE); UROBILINOGEN,URINE 0.2 EU/dL (0.2)
[2020-03-15 12:13] LABS: BASOPHILS % (AUTO) 0.8 % (0.0-2.0); EOSINOPHILS % (AUTO) 0.3 % (0.0-6.0); HEMATOCRIT 41 % (39-51); HEMOGLOBIN 13.3 g/dL (13.5-17.5); LYMPHOCYTES % (AUTO) 18.5 % (20.0-44.0); MEAN CORPUSCULAR HGB CONC 33 g/dl (31.0-36.0); MEAN CORPUSCULAR VOLUME 93 fL (80-96); MONOCYTES # (AUTO) 0.3 /CMM (0.1-1.30); NEUTROPHILS # (AUTO) 4.1 /CMM (1.8-8.9); NEUTROPHILS % (AUTO) 74.4 % (43.0-81.0); PLATELET COUNT (AUTO) 261 /CMM (150-450); RED BLOOD CELL COUNT(AUTO) 4.38 MIL/uL (4.5-6.0); WHITE BLOOD COUNT (AUTO) 5.5 K/uL (4.3-11.0)
--- NOTE | 2020-03-15 12:15 | NUR ---
[facility]N TO ER BED 15. AAOX4. NOT IN RESP DISTRESS. CAME IN FOR NAUSEA AND VOMMITING SINCE THIS MORNING. PT NOTED VOMMITTED ONCE AND DRY HEEVING. MD WAS AT THE BEDSIDE FOR EVAL. ORDERS RECEIVED NOTED AND CARRIED OUT.
[2020-03-15 12:18] LABS: BACTERIA,URINE None seen /HPF (None Seen); SQUAMOUS EPITHELIAL CELL,UR Few /HPF (None Seen); WBC,URINE 0-1 /HPF (0-3)
[2020-03-15 12:21] LABS: CALCIUM, SERUM 8.4 mg/dL (8.5-10.1); CREATININE 0.8 mg/dL (0.6-1.3); POTASSIUM 3.8 mmol/L (3.5-5.1)
[2020-03-15 12:26] LABS: ALBUMIN 3.9 g/dL (3.4-5.0); BILIRUBIN,DIRECT 0.1 mg/dL (0.0-0.2); BILIRUBIN,TOTAL 0.7 mg/dL (0.2-1.0); SALICYLATE 1.8 mg/dL (2.8-20.0)
[2020-03-15] MEDS ORDERED: ACETAMINOPHEN ES 500 MG TABLET ONE (16:13)
[2020-03-15] MEDS ORDERED: HALOPERIDOL LACTATE INJ 5 MG/ML VIAL ONE (16:13)
[2020-03-15] MEDS: HALOPERIDOL LACTATE INJ 5 MG/ML VIAL IV ONE (16:18)
[2020-03-15] MEDS: ACETAMINOPHEN 325 MG TABLET PO ONE (16:44)
--- NOTE | 2020-03-15 16:44 | NUR ---
PT NOTED TREMORS AND TREMBLING. MD MADE AWARE. VERBAL ORDERS TO GIVEN ATIVAN 2MG IV X 1 DOSE.
[2020-03-15] MEDS ORDERED: LORAZEPAM INJ 2 MG/ML VIAL ONE (16:58)
[2020-03-15] MEDS: LORAZEPAM INJ 2 MG/ML VIAL IV ONE (17:00)
--- NOTE | 2020-03-15 17:00 | NUR ---
PT TALKING TO MD AND VERBALIZED THAT HE IS SUICIDAL WITH PLANS TO RUN INTO TRAFFIC. PT WANTS VOLUNTARY ADMISSION.
--- NOTE | 2020-03-15 18:28 | NUR ---
PT NOTED W/ ROSANNE OF 193/97. MD MADE AWARE. VERBAL ORDER RECEIVED TO GIVE LABETALOL 20MG IV X 1 DOSE.
[2020-03-15] MEDS ORDERED: LABETALOL HCL IV 100MG VIAL ONE (19:01)
[2020-03-15] MEDS: LABETALOL 20 MG/4 ML VIAL IV ONE (19:05)
--- NOTE | 2020-03-15 20:26 | NUR ---
CALL FROM [facility], ACCEPTED TO [facility] BY DR NORRIS. ROOM P4. # FOR REPORT [phone]
[2020-03-15] MEDS: LABETALOL HCL IV 100MG VIAL IV ONE (20:36)
--- NOTE | 2020-03-15 20:40 | NUR ---
RES# [id number], ETA TO FOLLOW
--- NOTE | 2020-03-15 20:57 | NUR ---
[facility] BLS [id number]
[2020-03-15] MEDS ORDERED: CLONIDINE HCL 0.1 MG TABLET ONE (21:32)
[2020-03-15 21:35] VITALS: BP 180/98
[2020-03-15] MEDS: CLONIDINE HCL 0.1 MG TABLET PO ONE (21:35)
--- NOTE | 2020-03-15 23:06 | NUR ---
REPORT GIVEN TO OSORIO ROCHE FOR CONTINUATION OF CARE.
--- NOTE | 2020-03-15 23:15 | NUR ---
CALLED [id number], RES#[id number], BLS [facility] ETA [id number]
--- NOTE | 2020-03-15 23:22 | NUR ---
SPOKE WITH ARIELA FROM [facility]. ETA FOR SEAN IS 1 HOUR.
[2020-03-16] MEDS ORDERED: ENALAPRILAT INJ (1.25 MG/ML) 1.25 MG/ML VIAL IV ONE (00:55)
[2020-03-16] MEDS ORDERED: CHLORDIAZEPOXIDE HCL 25 MG CAPSULE ONE (01:56)
--- NOTE | 2020-03-16 01:58 | NUR ---
LIBRIUM 50MG PO ADMINISTERED ORDERED BY DR SHEEHAN. UNABLE TO ADMIN ON EMAR
--- NOTE | 2020-03-16 01:59 | NUR ---
SEAN AT BEDSIDE FOR TRANSPORT TO [facility].
[2020-03-16] MEDS ORDERED: CHLORDIAZEPOXIDE HCL 25 MG CAPSULE PO ONE (02:00)
== END 2020-03-16 02:00 ==
LOC: ER 11:25
DX: R10.84 Generalized abdominal pain (principal); F10.129 Alcohol abuse with intoxication, unspecified; F20.9 Schizophrenia, unspecified; F31.9 Bipolar disorder, unspecified; F17.200 Nicotine dependence, unspecified, uncomplicated; Z88.8 Allergy status to other drugs, medicaments and biological substances; Z79.899 Other long term (current) drug therapy; Y90.4 Blood alcohol level of 80-99 mg/100 ml
CPT/HCPCS: 36415; 80048; 80076; 80305; 80307; 80329; 81001; 85025; 96361; 96374; 96375; 96376; 99285; G0480; J1630; J2060; J2405; J3490 ×2; J7030; 81000-TC